=== PATIENT | male | born 1940 | race Caucasian/White ===

== ENCOUNTER 2024-10-25 11:18 | Outpatient (CLI) | payer OTHER, SELFPAY | END 2024-10-25 11:19 | disposition home or self-care (01) | LOC: AMB 10-26 14:57 | PROVIDERS: Visit Provider Family Medicine | DX: I46.9 Cardiac arrest, cause unspecified (principal) | CPT/HCPCS: A0425; A0427 ==

== ENCOUNTER 2024-10-25 11:59 | Emergency (ER) | payer OTHER, SELFPAY ==
[2024-10-25] VITALS (24 sets, daily range): BP systolic 140–177; BP diastolic 76–93; PULSE 55–65; RESP 11–28; TEMP 36.2; O2SAT 92–97; BMI 27.6
--- NOTE | 2024-10-25 12:40 | ED_ITS ---
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 Unfortunately Mr. Kelly has had 4 previous episodes of passing out. He actually had it implanted loop monitor placed 6 weeks ago. Today he was walking into the [employer] preparing to listen to his granddaughter sing in the choir. He started feeling lightheaded like he was going to pass out and was able to find a rock to sit on but then ended up laying on the ground. He was unresponsive for 2-3 minutes and EMS was actually called out for a cardiac arrest. However, when they arrived they found him to be bradycardic and waking up. He was given normal saline 500 mL and had complained of nausea when he awoke. He was given Zofran 4 mg. He ended up having a large bowel movement on the way to the hosp [facility]. In relation to previous episodes this is very similar with the exception of the bowel movement. He has had 4 previous episodes since March with no explanation. Mr Kelly has not had cough cold congestion. He denied chest pain shortness of breath visual changes numbness or tingling in the body prior to the onset of today's symptoms. He did eat breakfast but did not have a large amount of fluid. He has otherwise been healthy. His cardiologists is Dr. Stout with [facility]. He and his currently live in [place]. No history of Parkinson's disease. Note that patient did not feel ?quite right last week and had an episode of lightheadedness after walking up 8 steps. This lasted for only 2-3 minutes and he was not syncopal. He did contact [employer] and the loop monitor did not show any abnormal behavior. Related Data Home Medications ?Medication ?Instructions ?Recorded ?Confirmed aspirin 81 mg tablet,delayed 81 mg PO DAILY 10/25/24 10/25/24 release atorvastatin 40 mg tablet 40 mg PO DAILY 10/25/24 10/25/24 bupropiion 300 mg PO .am 10/25/24 10/25/24 buspirone 5 mg tablet 5 mg PO BID 10/25/24 10/25/24 carbamazepine 200 mg tablet 200 mg PO BID 10/25/24 10/25/24 finasteride 5 mg tablet 5 mg PO DAILY 10/25/24 10/25/24 losartan 100 mg tablet (Cozaar) 100 mg PO DAILY 10/25/24 10/25/24 metformin 1,000 mg tablet 1,000 mg PO DAILY 10/25/24 10/25/24 sennosides 8.6 mg tablet (senna) 8.6 mg PO DAILY 10/25/24 10/25/24 sumatriptan succinate 100 mg PO PRN 10/25/24 Review of Systems Status of ROS: Reports: 10 or more systems reviewed and unremarkable except as noted in History and below Const: Denies: fever, chills or fatigue Eyes: Denies: change in vision or blurry vision ENMT: Denies: throat pain, neck pain or nasal congestion Cardio: Denies: chest pain, palpitations, swelling of feet/ankles or shortness of breath with exertion Resp: Denies: shortness of breath or cough GI: Reports: nausea; Denies: abdominal pain or diarrhea : Denies: painful urination Musculo: Denies: back pain or neck pain Endo: Denies: fatigue PFSH PFSH Social History Smoking Status: Never smoker How often do you have a drink containing alcohol: 2-4 times a month How many standard drinks containing alcohol do you have on a typical day: 1 or 2 AUDIT-C Alcohol total score: 2 Non-prescribed substance use: denies use Exam Narrative: Exam Narrative: Alert and oriented. Very well-spoken gentleman in no acute distress. External ears eyes nose clear. Eyebrow raise smile intact. Heart with regular rate and rhythm and lungs are clear bilaterally. Abdomen soft nontender. All extremities with full sensation in motor and dexterity. Romberg is negative. Lower extremities with 1+ edema at the ankles. Const: Vital Signs, click to edit/add: Vital Signs - 24 hr 10/25/24 12:20 10/25/24 12:46 10/25/24 13:00 Temperature 97.2 F L Pulse Rate 59 L Pulse Rate [Pulse Oximeter] 58 L Pulse Rate [orthos tatic lying Pulse Oximeter] Pulse Rate [orthos tatic sitting] Pulse Rate [orthos tatic standing] Respiratory Rate 18 21 22 Blood Pressure Blood Pressure [Le ft Upper Arm] 156/83 H Blood Pressure [or thostatic lying] Blood Pressure [or thostatic sitting] Blood Pressure [or thostatic standing ] Pulse Oximetry 96 94 Oxygen Delivery [facility] Room Air 10/25/24 13:02 10/25/24 13:15 10/25/24 13:17 Temperature Pulse Rate Pulse Rate [Pulse Oximeter] Pulse Rate [orthos tatic lying Pulse Oximeter] 57 L Pulse Rate [orthos tatic sitting] 58 L Pulse Rate [orthos tatic standing] 58 L Respiratory Rate 21 14 Blood Pressure 158/85 H Blood Pressure [Le ft Upper Arm] Blood Pressure [or thostatic lying] 140/81 H Blood Pressure [or thostatic sitting] 151/77 H Blood Pressure [or thostatic standing ] 146/76 H Pulse Oximetry [facility] 10/25/24 13:19 10/25/24 13:21 10/25/24 13:22 Temperature Pulse Rate 59 L 58 L Pulse Rate [Pulse Oximeter] Pulse Rate [orthos tatic lying Pulse Oximeter] Pulse Rate [orthos tatic sitting] Pulse Rate [orthos tatic standing] Respiratory Rate 20 11 L 18 Blood Pressure 140/81 H 151/77 H 146/76 H Blood Pressure [Le ft Upper Arm] Blood Pressure [or thostatic lying] Blood Pressure [or thostatic sitting] Blood Pressure [or thostatic standing ] Pulse Oximetry 97 97 Oxygen Delivery La thod 10/25/24 13:30 10/25/24 13:32 10/25/24 13:45 Temperature Pulse Rate 58 L 59 L 57 L Pulse Rate [Pulse Oximeter] Pulse Rate [orthos tatic lying Pulse Oximeter] Pulse Rate [orthos tatic sitting] Pulse Rate [orthos tatic standing] Respiratory Rate 18 16 15 Blood Pressure 152/84 H Blood Pressure [Le ft Upper Arm] Blood Pressure [or thostatic lying] Blood Pressure [or thostatic sitting] Blood Pressure [or thostatic standing ] Pulse Oximetry 93 93 95 Oxygen Delivery La thod 10/25/24 14:00 10/25/24 14:02 10/25/24 14:15 Temperature Pulse Rate 59 L 57 L 60 Pulse Rate [Pulse Oximeter] Pulse Rate [orthos tatic lying Pulse Oximeter] Pulse Rate [orthos tatic sitting] Pulse Rate [orthos tatic standing] Respiratory Rate 14 15 19 Blood Pressure 147/78 H Blood Pressure [Le ft Upper Arm] Blood Pressure [or thostatic lying] Blood Pressure [or thostatic sitting] Blood Pressure [or thostatic standing ] Pulse Oximetry 96 95 96 Oxygen Delivery Me thod 10/25/24 14:30 10/25/24 14:32 10/25/24 14:45 Temperature Pulse Rate 62 55 L 62 Pulse Rate [Pulse Oximeter] Pulse Rate [orthos tatic lying Pulse Oximeter] Pulse Rate [orthos tatic sitting] Pulse Rate [orthos tatic standing] Respiratory Rate 16 16 20 Blood Pressure 152/78 H Blood Pressure [Le ft Upper Arm] Blood Pressure [or thostatic lying] Blood Pressure [or thostatic sitting] Blood Pressure [or thostatic standing ] Pulse Oximetry 92 94 94 Oxygen Delivery Me thod 10/25/24 14:59 10/25/24 15:00 10/25/24 15:02 Temperature Pulse Rate 62 Pulse Rate [Pulse Oximeter] Pulse Rate [orthos tatic lying Pulse Oximeter] Pulse Rate [orthos tatic sitting] Pulse Rate [orthos tatic standing] Respiratory Rate 18 19 15 Blood Pressure 172/93 H 177/84 H Blood Pressure [Le ft Upper Arm] Blood Pressure [or thostatic lying] Blood Pressure [or thostatic sitting] Blood Pressure [or thostatic standing ] Pulse Oximetry 94 Oxygen Delivery Me thod Room Air 10/25/24 15:15 10/25/24 15:30 10/25/24 15:32 Temperature Pulse Rate 63 64 65 Pulse Rate [Pulse Oximeter] Pulse Rate [orthos tatic lying Pulse Oximeter] Pulse Rate [orthos tatic sitting] Pulse Rate [orthos tatic standing] Respiratory Rate 28 H 22 22 Blood Pressure 164/91 H Blood Pressure [Le ft Upper Arm] Blood Pressure [or thostatic lying] Blood Pressure [or thostatic sitting] Blood Pressure [or thostatic standing ] Pulse Oximetry 96 97 95 Oxygen Delivery Me thod Documenting provider has reviewed patient's vital signs: yes Course Course ED Course: Differential diagnosis includes sick sinus syndrome, vasovagal syncope, acute coronary event, arrhythmia, autonomic dysfunction. At this time patient will remain on the surveillance system monitor, be checked with a CBC, comprehensive panel, troponin. [facility] Patient will try to contact [employer] to see if there was anything picked up on his device. Reevaluation(s) Reevaluation #1: Unfortunately we are unable to interrogate this device in this area. I did have the pleasure of speaking to Cardiology from the [facility] who does suggest contacting the physician line with [employer] to have a product support representative come and interrogate this. Unfortunately there is no such help available today. I spoke to the granulating machine operator once again. Feels that if patient is agreeable we could let him go home and follow up tomorrow morning since this is the 5th time something like this has happened. Vital Signs Vital signs: Initial Vital Signs Temperature 97.2 F L 10/25/24 12:20 Temperature Source Temporal Artery Scan 10/25/24 12:20 Pulse Rate 58 L 10/25/24 12:20 Respiratory Rate 18 10/25/24 12:20 Blood Pressure 156/83 H 10/25/24 12:20 Blood Pressure Mean 107 H 10/25/24 12:20 Blood Pressure Position Sitting 10/25/24 12:20 Pulse Oximetry 96 10/25/24 12:20 Oxygen Delivery Method Room Air 10/25/24 12:20 Vital Signs Temperature 97.2 F L 10/25/24 12:20 Pulse Rate 58 L 10/25/24 12:20 Respiratory Rate 18 10/25/24 12:20 Blood Pressure 156/83 H 10/25/24 12:20 Pulse Oximetry 96 10/25/24 12:20 Oxygen Delivery Method Room Air 10/25/24 12:20 Temperature 97.2 F L 10/25/24 12:20 Pulse Rate 65 10/25/24 15:32 Respiratory Rate 22 10/25/24 15:32 Blood Pressure 164/91 H 10/25/24 15:32 Pulse Oximetry 95 10/25/24 15:32 Oxygen Delivery Method Room Air 10/25/24 14:59 Medical Decision Making MDM Narrative Medical decision making narrative: 1. Syncopal episode--EKG unchanged from previous in discussion with granulating machine operator. Troponin is negative. Patient has being quite anxious to go home but has been very gracious as he awaits my discussion with Cardiology. He has had no chest pain shortness of breath either prior to during or after this event. At this time with shared decision making he does wish to go home. Alternatively the plan would be to transfer him to tertiary care where they could interrogate his device. He states that he is feeling totally normal. They note four previous similar occurrences. At this time I do note that I do not have an explanation for what he he experience today but if you would like to go home we will allow that to happen. He states that if any of his symptoms returned they will go immediately to hospital. If tonight is without incident he is to contact his granulating machine operator tomorrow morning for interrogation of the [employer] device. His is in agreement with this plan. 2. Disposition-home at this time. Return for worsening symptoms. Suggested increasing hydration. Lab Data Lab results reviewed: Yes I reviewed the patient's lab results Labs: Lab Results 10/25/24 10/25/24 Range/Units 13:03 13:12 WBC 7.32 (4.50-11.00) K/uL RBC 4.01 L (4.30-5.90) m/uL Hgb 12.1 L (13.5-17.5) gm/dL Hct 38.2 (37.0-53.0) % MCV 95 (80-100) fL MCH 30 (26-34) pg MCHC 32 (32-36) gm/dL RDW Coeff of Jacy 14.5 (11.5-15.5) % Plt Count 199 (140-440) K/uL Neut % (Auto) 75.4 H (42.0-72.0) % Lymph % (Auto) 13.9 L (20-44) % [place] % (Auto) 7.4 (0.0-11.0) % Eos % (Auto) 2.5 (0.0-7.0) % Baso % (Auto) 0.5 (0.0-3.0) % Neut # (Auto) 5.50 (1.7-7.0) K/uL Lymph # (Auto) 1.00 (0.90-2.90) K/uL [place] # (Auto) 0.50 (0.00-0.90) K/UL Eos # (Auto) 0.18 (0.00-0.50) K/uL Baso # (Auto) 0.04 (0.00-0.30) K/uL Abs Immat Gran (auto) 0.02 (0.00-0.30) K/uL Imm/Tot Granulo (auto) 0.3 % Sodium 137 (135-149) mmol/L Potassium 4.6 (3.6-5.1) mmol/L Chloride 104 (96-114) mmol/L Carbon Dioxide 26 (20-32) mmol/L Anion Gap 7 (7-15) mEq/L BUN 20 (7-30) mg/dL Creatinine 0.8 (0.5-1.5) mg/dL Estimated Creat Clear 60.66 Estimated GFR 88 ml/min Glucose 116 H (60-115) mg/dL Calcium 9.0 (8.4-10.6) mg/dL Total Bilirubin 0.5 (0.1-1.5) mg/dL AST 40 H (12-35) U/L ALT 23 (4-50) U/L Alkaline Phosphatase 61 (40-150) U/L Total Protein 6.7 (6.0-8.3) g/dL Albumin 3.9 (3.3-5.0) g/dL POC Troponin I 0.00 L (0.01-0.04) ng/ml ECG Data Attestation: I personally reviewed and interpreted this ECG as follows: Interpretation: EKG by my read shows sinus bradycardia at a rate of 59. Prolonged [place] interval at 0246 milliseconds. Poor R-wave progression. QT within normal limits. Questionable previous septal infarct. No previous EKGs for comparison. Discharge Plan Discharge Clinical Impression: Syncope Patient Disposition: Home, Self-Care Condition: Improved Additional Instructions: You were supposed to call the granulating machine operator's office tomorrow to have your device checked. If you are feeling worse after departure please proceed to nearest hospital. Prescriptions: No Action finasteride 5 mg tablet 5 mg PO DAILY losartan [Cozaar] 100 mg tablet 100 mg PO DAILY metformin 1,000 mg tablet 1,000 mg PO DAILY sennosides [senna] 8.6 mg tablet 8.6 mg PO DAILY sumatriptan succinate 100 mg PO PRN aspirin 81 mg tablet,delayed release (DR/EC) 81 mg PO DAILY atorvastatin 40 mg tablet 40 mg PO DAILY bupropiion 300 mg PO .am buspirone 5 mg tablet 5 mg PO BID carbamazepine 200 mg tablet 200 mg PO BID Follow Up/Referrals: Provider,Not a Local [Primary Care Provider] - Stand Alone Forms: [employer] Info Instructions
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
--- OUTSIDE RECORDS SUMMARY | 2024-10-25 12:50 | XMS_ITS | Encounter Summary ---
Author Organization [facility] Address [address] [place] [address] Care Team Providers Care Human Services Case Manager Name Role Phone Jeison Stout MD Unavailable [phone] Morning, Gaye Varela NP Primary Care Provider [phone] Tayla Collado PA-C Unavailable [phone] Morning, Gaye Varela NP Unavailable [phone] Encounter Details Date Type Department Care Team (Latest Contact Info) Description 09/21/2024 Travel Social History Tobacco Use Types Packs/Day Years [...] re latives? Once a week 07/28/2024 Attends Sikhism Services Not on file 07/28 Active Member of Clubs or Organizations Not on f ile 07/28/2024 Attends Club or Organization Meetings Not on wilman e 07/28/2024 Marital Status Not on file 07/28/2024 PHQ-2 Answer Date Recorded PHQ-2 Score 2 07/29/2024 [facility] [place] [facility] - Occupational Stress Questionnaire Answer Date Recorded [...] Date Recorded Do you have housing? 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 Gender Identity Not on file Sexual Orientation Not on file documented as of this encounter Plan of Treatment Upcoming Encounters Date Type Department Care Team (Late st Contact Info) Description 10/30/2024 1:00 PM CDT Appointment [facility] Diagnostic Imaging [address] [place] [phone] Macarena Hudson PA-C [address] [place], [place] [phone] 10/30/2024 1:30 PM CDT Office Visit [facility] Spine and Neurosurgery [address] [facility] [address] [place] [phone] Macarena Hudson PA-C [address] [place], [place] [phone] Kassie Berkowitz PA-C [facility] [address] [id number] 11/25/2024 9:10 AM CDT Office Visit [facility] [address] [facility] [address] [place] [phone] Katt Gaytan PA-C [address] [facility] [address] [place] [address] 01/20/2025 1:00 PM CDT Office Visit [facility] [place] [id number] [place] [phone] Morning, Gaye Varela, PROCESS IMPROVEMENT SPECIALIST [address] [facility] [address] [place] [phone] Kassie Rondon PA-C [address] [facility] [address] [address] 01/22/2025 Ancillary Procedure [facility] [address] [facility] [address] [place] [phone] Julio Wright MD [address] [facility] [address] [place] [address] documented as of this encounter Visit Diagnoses Not on filedocumented in this encounter Care Teams Human Services Case Manager Relationship Specialty Start Date End Date Morning, Gaye Varela NP [address] [address] PCP - General Internal Medicine 07/29/24 Jeison Stout MD [address] [facility] [address] [place] [address] Assigned Heart and Vascular Provider 07/09/24 Tayla Collado PA-C [address] [place] [address] Assigned Neuroscience Provider 08/09/24 10/06/24 Morning, Gaye Varela NP [address] [address] Assigned PCP 08/09/24 documented as of this encounter
--- OUTSIDE RECORDS SUMMARY | 2024-10-25 12:50 | XMS_ITS | Encounter Summary ---
Author Organization [place] Address [address] [place] [address] Care Team Providers Care Business Intelligence Engineer Name Role Phone Jeison Stout MD Unavailable [phone] Morning, Gaye Varela NP Primary Care Provider [phone] Tayla Collado PA-C Unavailable [phone] Morning, Gaye Varela NP Unavailable [phone] Reason for Referral * Diagnostic Imaging XR (Routine) - Pending Review Specialty Diagnoses / Procedures Referred By Contac t Referred To Contact Radiology. Diagnoses Compression fracture of T11 vertebra with routine healing, 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 Procedures XR Thoracic Lumbar Standing 2 Views Tayla Collado PA-C [address] [place] [address] Phone: tel: fax: Referral ID Status Reason Start Date Expiration Date V isits Requested Visits Authorized [id number] Pending Review 08/13/2024 08/13/2025 1 1 Reason for Visit * Diagnostic Imaging XR (Routine) - Pending Review Specialty Diagnoses / Procedures Referred By Contac t Referred To Contact Radiology. Diagnoses Compression fracture of T11 vertebra with routine healing, 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 Procedures XR Thoracic Lumbar Standing 2 Views Tayla Collado PA-C [address] [place] [address] Phone: tel: fax: Referral ID Status Reason Start Date Expiration Date V isits Requested Visits Authorized [id number] Pending Review 08/13/2024 08/13/2025 1 1 Encounter Details Date Type Department Care Team (Latest Contact Info) Description 09/22/2024 1:24 PM CDT - 09/22/2024 11:59 PM CDT Hospital Encounter [address] [phone] Tayla Collado PA-C [address] [place], [place] [phone] Compression fracture of T11 vertebra with routine healing, 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 Discharge Disposition: Home or Self Care Social History Tobacco Use Types Packs/Day Years [...] re latives? 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 atorvastatin (LIPITOR) 40 MG tablet Take 1 tablet by mouth daily at 2 pm. 09/18/2024 buPROPion (WELLBUTRIN XL) 300 MG 24 hr tablet Take 300 mg by mouth every morning. 06/22/2024 busPIRone (BUSPAR) 5 MG tablet Take 5 mg by mouth 2 times daily. 06/22/2024 06/27/2025 carBAMazepine (TEGRETOL) 200 MG tablet Take 200 mg by mouth 2 times daily. 06/28/2023 losartan (COZAAR) 100 MG tablet Take 1 tablet by mouth daily. 02/16/2024 metFORMIN (GLUCOPHAGE XR) 500 MG 24 hr tablet Take 2 tablets by mouth daily. 02/16/2024 senna-docusate (SENOKOT-S/PERIC OLACE) 8.6-50 MG tablet Take 1 tablet by mouth daily. SUMAtriptan (IMITREX) 100 MG tablet Take 100 mg by mouth at onset of headache for migraine. 01/29/2024 cyclobenzaprine (FLEXERIL) 5 MG tablet Take 5 mg by mouth as needed. 09/14/2024 10/14/2024 gabapentin (NEURONTIN) 100 MG capsule Take 100 mg by mouth daily. 09/14/2024 10/14/2024 atorvastatin (LIPITOR) 20 MG tablet Take 20 mg by mouth daily. 09/25/2024 Lidocaine (LIDOCARE) 4 % Patch Apply 2 patches topically. 09/14/2024 09/25/2024 tamsulosin (FLOMAX) 0.4 MG capsuleIndicatio ns:Weak urinary stream Take 1 capsule (0.4 mg) by mouth daily. 30 capsule 09/07/2024 10/06/2024 documented as of this encounter Plan of Treatment Upcoming Encounters Date Type Department Care Team (Late st Contact Info) Description 10/30/2024 1:00 PM CDT Appointment [facility] Diagnostic Imaging [address] [place] [phone] Macarena Hudson PA-C [address] [place] [address] 10/30/2024 1:30 PM CDT Office Visit [facility] Spine and Neurosurgery [address] [facility] [address] [place] [phone] Macarena Hudson PA-C [address] [place] [address] Kassie Berkowitz PA-C [facility] [address] [place] [address] 11/25/2024 9:10 AM CDT Office Visit [facility] [address] [facility] [address] [place] [phone] Katt Gaytan PA-C [address] [facility] [address] [place], [place] [phone] 01/20/2025 1:00 PM CDT Office Visit [facility] [address] [place] [phone] Morning, Gaye Varela, PRODUCT MANAGENT INTERN [address] [facility] [address] [place] [phone] aKssie Rondon PA-C [address] [facility] [address] [place] [address] 01/22/2025 Ancillary Procedure [facility] [address] [facility] [address] [place] [phone] Julio Wright MD [address] [facility] [address] [place], [place] [phone] documented as of this encounter Procedures Procedure Name Priority Date/Time Associated Diagnosis Comments XR THORACIC LUMBAR STANDING 2 VIEWS Routine 09/22/2024 1:56 PM CDT Compression fracture of T11 vertebra with routine healing, 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 documented in this encounter Results * XR Thoracic Lumbar Standing 2 Views (09/22/2024 1:56 PM CDT) Anatomical Region Laterality Modality C-spine, T-spine, L-spine Digita l Radiography 09/22/2024 1:56 PM CDT Impressions 09/22/2024 11:58 PM CDT IMPRESSION: 1. No significant progressive height loss associated with known T11 superior endplate fracture or T12 inferior endplate fracture since radiographs performed on 07/22/2024. No new areas of vertebral body height loss. 2. Similar alignment with thoracolumbar levocurvature and retrolisthesis of L1 on L2 and L2 on L3. 3. Multilevel degenerative disc and facet disease. 4. Loop recorder device overlying the left hemithorax. Narrative 09/22/2024 11:58 PM CDT EXAM: XR THORACIC LUMBAR STANDING 2 VIEWS LOCATION: [facility] DATE: 09/22/2024 INDICATION: subacute T11 compression fracture COMPARISON: Thoracic spine MRI: 08/07/2024. Thoracic spine radiographs: 07/22/2024. Procedure Note Venancio Rouse MD - 09/23/2024 EXAM: XR THORACIC LUMBAR STANDING 2 VIEWS LOCATION: [facility] DATE: 09/22/2024 INDICATION: subacute T11 compression fracture COMPARISON: Thoracic spine MRI: 08/07/2024. Thoracic spine radiographs:07/22/2024. IMPRESSION: 1. No significant progressive height loss associated with known [id number] endplate fracture or T12 inferior endplate fracture sinceradiographs performed on 07/22/2024. No new areas of vertebral body heightloss. 2. Similar alignment with thoracolumbar levocurvature and retrolisthesisof L1 on L2 and L2 on L3. 3. Multilevel degenerative disc and facet disease. 4. Loop recorder device overlying the left hemithorax. us Tayla Collado PA-C IMG DIAGNOSTIC IMAGING O RDERABLES Final Result documented in this encounter Visit Diagnoses Diagnosis Compression fracture of T11 vertebra with routine healing, 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 documented in this encounter Care Teams Business Intelligence Engineer Relationship Specialty Start Date End Date Morning, Gaye Varela NP [address] [facility] [place] [address] PCP - General Internal Medicine 07/29/24 Jeison Stout MD [address] [place] [address] [address] [place] [address] Assigned Heart and Vascular Provider 07/09/24 Tayla Collado PA-C [address] [place] [address] Assigned Neuroscience Provider 08/09/24 10/06/24 Morning, Gaye Varela NP [facility] [facility] [place] [address] Assigned PCP 08/09/24 documented as of this encounter
--- OUTSIDE RECORDS SUMMARY | 2024-10-25 12:50 | XMS_ITS | Encounter Summary ---
Author Organization [place] Address [address] [place] [address] Care Team Providers Care Hoist Mechanic Name Role Phone Jeison Stout MD Unavailable [phone] Morning, Gaye Varela NP Primary Care Provider [phone] Tayla Collado PA-C Unavailable [phone] Morning, Gaye Varela NP Unavailable [phone] Reason for Visit * Diagnostic Imaging XR (Routine) - Pending Review Specialty Diagnoses / Procedures Referred By Saba guzman Referred To Contact Radiology. Diagnoses Multiple closed fractures of ribs of both sides with routine healing, 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 Procedures XR Chest 2 Views Morning, Gaye Varela NP [address] [address] Phone: tel: fax: Referral ID Status Reason Start Date Expiration Date V isits Requested Visits Authorized [id number] Pending Review 09/21/2024 09/21/2025 1 1 Encounter Details Date Type Department Care Team (Late st Contact Info) Description 09/21/2024 2:15 PM CDT Ancillary Procedure [facility] [address] [place] [phone] Morning, Gaye Varela NP [address] [facility] [place] [address] Multiple closed fractures of ribs of both sides with routine healing, 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 Social History Tobacco Use Types [...] re latives? Once a week 07/28/2024 Attends [employer] Services Not on file 07/28 Active Member of Clubs or Organizations Not on f ile 07/28/2024 Attends Club or Organization Meetings Not on wilman e 07/28/2024 Marital Status Not on file 07/28/2024 PHQ-2 Answer Date Recorded PHQ-2 Score 2 07/29/2024 [facility] [place] of Occupat ional Health - Occupational Stress [...] Answer Date Recorded Do you have housing? 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 Gender Identity Not on file Sexual Orientation Not on file documented as of this encounter Plan of Treatment Upcoming Encounters Date Type Department Care Team (Late st Contact Info) Description 10/30/2024 1:00 PM CDT Appointment [facility] Diagnostic Imaging [address] [place] [phone] Macarena Hudson PA-C [address] [place] [address] 10/30/2024 1:30 PM CDT Office Visit [facility] Spine and Neurosurgery [address] [facility] [address] [place] [phone] Macarena Hudson PA-C [address] [place] [address] Kassie Berkowitz PA-C [facility] [address] [facility] [place] [address] 11/25/2024 9:10 AM CDT Office Visit [facility] Heart [facility] [address] [facility] [address] [place] [phone] Katt Gaytan PA-C [address] [facility] [address] [place] [address] 01/20/2025 1:00 PM CDT Office Visit [facility] [address] [place] [phone] Morning, Gaye Varela, HEADLINER INSTALLER [address] [facility] [address] [address] [place], [place] [phone] Kassie Rondon PA-C [address] [facility] [address] [place], [place] [address] 01/22/2025 Ancillary Procedure [facility] [address] [facility] [address] [place] [phone] Julio Wright MD [address] [facility] [address] [place] [address] documented as of this encounter Procedures Procedure Name Priority Date/Time Associated Diagnosis Comments XR CHEST 2 VIEWS Routine 09/21/2024 2:18 PM CDT Multiple closed fractures of ribs of both sides with routine healing, 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 documented in this encounter Results * XR Chest 2 [...] CDT EXAM: XR CHEST 2 VIEWS LOCATION: [facility] DATE: 09/21/2024 INDICATION: Multiple closed fractures of ribs of both sides with routine healing, 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 COMPARISON: CT 06/15/2024 Procedure Note Aston Harman MD - 09/22/2024 EXAM: XR CHEST 2 VIEWS LOCATION: [facility] DATE: 09/21/2024 INDICATION: Multiple closed fractures of ribs of both sides with routinehealing, 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 COMPARISON: CT 06/15/2024 IMPRESSION: Chronically elevated right hemidiaphragm with some associatedatelectasis right lung base unchanged since prior CT. Monitoring deviceover the chest. No acute new findings. No pneumothorax. Nothing concerningfor rib fractures on chest x- ray. Gaye Varela Morning HEADLINER INSTALLER IMG DIAGNOSTIC IMAGING [place] Final Result documented in this encounter Visit Diagnoses Diagnosis Multiple closed fractures of ribs of both sides with routine healing, 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 documented in this encounter Care Teams Hoist Mechanic Relationship Specialty Start Date End Date Catherine, Gaye Varela NP [address] [address] PCP - General Internal Medicine 07/29/24 Jeison Stout MD [address] [address] Assigned Heart and Vascular Provider 07/09/24 Tayla Collado, ULISES [address] [place] [address] Assigned Neuroscience Provider 08/09/24 10/06/24 Catherine, Gaye Varela NP [address] [address] Assigned PCP 08/09/24 documented as of this encounter
--- OUTSIDE RECORDS SUMMARY | 2024-10-25 12:50 | XMS_ITS | Encounter Summary ---
Author Organization [place] Address [address] [place] [address] Care Team Providers Care Director Process Improvement Name Role Phone Jeison Stout MD Unavailable [phone] Morning, Gaye Varela NP Primary Care Provider [phone] Tayla Collado-Alyson Unavailable [phone] Morning, Gyae Varela NP Unavailable [phone] Reason for Referral * CV Testing (Routine) - Pending Review Specialty Diagnoses / Procedures Referred By Saba guzman Referred To Contact Diagnoses History of loop recorder Syncope, unspecified syncope type Procedures Cardiac Device Check - Remote Julio Wright MD [address] [facility] 200 [place] [address] Phone: tel: fax: Referral ID Status Reason Start Date Expiration Date V isits Requested Visits Authorized [id number] Pending Review 09/25/2024 09/25/2025 100 100 Reason for Visit * CV Testing (Routine) - Pending Review Specialty Diagnoses / Procedures Referred By Saba guzman Referred To Contact Diagnoses History of loop recorder Procedures Cardiac Device Check - In Clinic Julio Wright MD [address] [facility] 200 [place] [address] Phone: tel: fax: Referral ID Status Reason Start Date Expiration Date V isits Requested Visits Authorized [id number] Pending Review 09/24/2024 09/24/2025 1 1 Encounter Details Date Type Department Care Team (Latest Contact Info) Description 09/25/2024 3:00 PM CDT Ancillary Procedure [facility] Heart [facility] [address] [facility] [address] [place] [address] Julio Wright MD 1600 [facility] 200 [place], [place] [phone] Syncope, unspecified syncope type (Primary Dx); History of loop recorder Social History Tobacco Use Types Packs/Day Years [...] re latives? 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 Gender Identity Not on file Sexual Orientation Not on file documented as of this encounter Plan of Treatment Upcoming Encounters Date Type Department Care Team (Late st Contact Info) Description 10/30/2024 1:00 PM CDT Appointment [facility] Diagnostic Imaging [address] [place] [phone] Macarena Hudson PA-C [address] [place] [address] 10/30/2024 1:30 PM CDT Office Visit [facility] Spine and Neurosurgery [address] [facility] [address] [place] [phone] Macarena Hudson PA-C [address] [facility] [place] [place] [phone] Kassie Berkowitz PA-C [facility] [address] [facility] [place] [place], [place] [address] 11/25/2024 9:10 AM CDT Office Visit [facility] [address] [facility] [place] [phone] Katt Gaytan PA-C 1600 [facility] 200 [place], [place] [phone] 01/20/2025 1:00 PM CDT Office Visit [facility] [address] [place] [phone] Morning, Gaye Varela, ACTUARIAL TECHNICIAN [address] [facility] [place], [place] [phone] Kassie Rondon PA-C [address] [facility] 103 [place], [place] [address] 01/22/2025 Ancillary Procedure [facility] [address] [place] [phone] Julio Wright MD 1600 [facility] 200 [place], [place] [phone] Scheduled Orders Name Type Priority Associated Diagnoses Orde r Schedule Cardiac Device Check - Remote Implantable Cardiac Device Routine History of loop recorder Syncope, unspecified syncope type 100 Occurrences starting 09/25/2024 until 09/25/2025, 1 completed documented as of this encounter Procedures Procedure Name Priority Date/Time Associated Diagnosis Comments INTERR DEVICE EVAL IN PERSON, LOOP RECORDER Routine 09/25/2024 2:54 PM CDT History of loop recorder documented in this encounter Results * REMOTE IMPLANTABLE LOOP RECORDER INTERROGATION 30 DAY (10/23/2024 10:30 AM CDT) Date Time Interrogation Session [id number] [employer] Implantable Pulse Generator Endocrinology Nurse Medtronic [employer] Implantable Pulse Generator Model LNQ22 LINQ II [employer] Implantable Pulse Generator Serial Number [id number] [employer] Type Interrogation Session Remote [facility] [employer] Implantable Pulse Generator Type Implantable Diagnostic Monitor [employer] Implantable Pulse Generator Implant Date 20240914 [employer] Anatomical Region Laterality Modality Other 10/23/2024 9:18 AM CDT Narrative 10/23/2024 10:43 AM CDT Type: routine remote loop recorder transmission. Device: Medtronic LINQ II. Presenting rhythm: Sinus 60 bpm. Battery status: Good. Arrhythmias: since 09/25/24; None detected. Plan: Next remote check scheduled for 01/22/25. E. Pivec, Device Specialist Device follow up for the entirety of having the Device, based on best practices determined by Heart R[employer] Society and in compliance with Medicare guidelines. Continue remote device monitoring per patient plan. I have reviewed and interpreted the device interrogation, settings, programming, and encounter summary. The device is functioning within normal device parameters. I agree with the current findings, assessment and plan. us Julio Wright MD CV CARDIAC SERVICES ORD ERABLES Final Result * INTERR DEVICE EVAL IN PERSON, LOOP RECORDER (09/25/2024 2:54 PM CDT) Implantable Pulse Generator Endocrinology Nurse Medtronic [employer] Implantable Pulse Generator Model LNQ22 LINQ II [employer] Implantable Pulse Generator Serial Number [id number] [employer] Type Interrogation Session [facility] [employer] Implantable Pulse Generator Type Implantable Diagnostic Monitor [employer] Implantable Pulse Generator Implant Date 20240914 [employer] Date Time Interrogation Session [id number] [employer] Anatomical Region Laterality Modality Other 09/25/2024 3:45 PM CDT Narrative 09/25/2024 4:20 PM CDT Encounter type: In clinic ILR check (7-10 day post op) & wound assessment. Accompanied by his , Jocelyne. Device: Medtronic LINQ II loop recorder Implanted on: September 14, 2024 For Dx: Syncope Presenting Rhythm: Ventricular sensing at 55 bpm (normal SR/SB) Battery: Good Symptom: None Tachy: None Pause: 3 pause episodes logged on 09/14/2024 (date & time of ILR implant) Manav: None Time in AT/AF: None, 0% Heart rate: 30-180 bpm but primarily 40-80 bpm per histograms with excellent variability (PVC's <1%) Device site: Clean, dry, & intact with edges well approximated. No redness, drainage, or gross swelling noted. Teaching/education: Reviewed incisional care, signs/symptoms of infection, remote monitoring (relay monitor), when to call the clinic, and Partnership for device patients agreement form with patient. Comments: Normal device function. Plan: Next scheduled remote transmission on January 04, 2025- patient is aware & reminder letter was given to him. Gabby Bro RN Remote monitoring for arrhythmic events for the entirety of having the ILR, based on best practices determined by [facility] and in compliance with Medicare Guidelines. I have reviewed and interpreted the device interrogation, settings, programming and nurse's summary. The device is functioning within normal device parameters. I agree with the current findings, assessment and plan. us Julio Wright MD CV CARDIAC SERVICES ORD ERABLES Final Result documented in this encounter Visit Diagnoses Diagnosis Syncope, unspecified syncope type- Primary History of loop recorder documented in this encounter Care Teams Director Process Improvement Relationship Specialty Start Date End Date Morning, Gaye Varela NP [address] [facility] [place] [address] PCP - General Internal Medicine 07/29/24 Jeison Stout MD 1600 [facility] 200 [place] [address] Assigned Heart and Vascular Provider 07/09/24 Tayla Collado PA-C [address] [facility] [place] [address] Assigned Neuroscience Provider 08/09/24 10/06/24 Morning, Gaye Varela NP [address] [facility] [place] [address] Assigned PCP 08/09/24 documented as of this encounter
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
--- OUTSIDE RECORDS SUMMARY | 2024-10-25 12:51 | XMS_ITS | Encounter Summary ---
Author Organization [facility] Address [address] [place] [address]. [place] [address] Care Team Providers Care Housekeeping Aide Name Role Phone Jeison Stout MD Unavailable [phone] Morning, Gaye Varela NP Primary Care Provider [phone] Tayla Collado PA-C Unavailable [phone] Morning, Gaye Varela NP Unavailable Reason for Visit * Reason Onset Date Comments Orders 09/16/2024 Encounter Details Date Type Department Care Team (Late st Contact Info) Description 09/16/2024 Telephone [facility] [address] [place] [address] Morning, Gaye Varela NP [address] [facility] [place] [phone] Orders Social History Tobacco Use Types Packs/Day Years [...] re latives? 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 * Telephone Encounter - Gaye Alexander NP - 09/16/2024 12:57 PM CDT Please let patient know that I did place an order for BMP. He should schedule a lab appointment to have this completed. Depending on when this is completed I may have results before I leave by the end of the day today however results may come back tomorrow. I am not in office tomorrow but they willhave another provider covering my in basket to follow-up on those results. * Telephone Encounter - Gabby Juares - 09/16/2024 9:40 AM CDT Order/Referral Request Who is requesting: patient Orders being requested: labs for sodium Reason service is needed/diagnosis: low sodium levels - ER provider told pt to get in today for labs and and to see PCP but there isn't an order for labs and PCP is booked completely When are orders needed by: 09/16 Has this been discussed with Provider: N/A Does patient have a preference on a Group/Provider/Facility? Does patient have an appointment scheduled?: No Where to send orders: Place orders within [facility] Could we send this information to you in [facility] or would you prefer to receive a phone call?: Patient would prefer a phone call Okay to leave a detailed message?: N/A at Home number on file [phone] (home) documented in this encounter Plan of Treatment Upcoming Encounters Date Type Department Care Team (Late st Contact Info) Description 10/30/2024 1:00 PM CDT Appointment [facility] Diagnostic Imaging [address] [place] [phone] Macarena Hudson PA-C [address] [place] [address] 10/30/2024 1:30 PM CDT Office Visit [facility] Spine [facility] Neurosurgery [address] [facility] [address] [place] [phone] Macarena Hudson PA-C [address] [place] [address] Kassie Berkowitz PA-C [facility] [address] [address] 11/25/2024 9:10 AM CDT Office Visit [facility] [address] [facility] [address] [place] [phone] Katt Gaytan PA-C [address] [facility] [address] [place] [address] 01/20/2025 1:00 PM CDT Office Visit [facility] [place] [address] [place] [phone] Morning, Gaye Varela, COIL MAKER [address] [facility] [address] [place] [phone] Kassie Rondon PA-C [address] [facility] [address] [id number] 01/22/2025 Ancillary Procedure [facility] [address] [place] [place] [phone] Julio Wright MD [address] [facility] [address] [place], [place] [phone] documented as of this encounter Results * (ABNORMAL) Basic metabolic panel (09/16/2024 1:42 PM CDT) Sodium 125(L) 135 - 145 mmol/L 09/16/2024 7:06 PM CDT [facility] Potassium 5.4(H) 3.4 - 5.3 mmol/L 09/16/2024 7:06 PM CDT [facility] Chloride 91(L) 98 - 107 mmol/L 09/16/2024 7:06 PM CDT [facility] Carbon Dioxide (CO2) 25 22 - 29 mmol/L 09/16/2024 7:06 PM CDT [facility] Anion Gap 9 7 - 15 mmol/L 09/16/2024 7:06 PM CDT [facility] Urea Nitrogen 21.2 8.0 - 23.0 mg/dL 09/16/2024 7:06 PM CDT [facility] Creatinine 0.82 0.67 - 1.17 mg/dL 09/16/2024 7:06 PM CDT [facility] GFR Estimate 88 >60 mL/min/1.7 3m2 09/16/2024 7:06 PM CDT [facility] Comment:eGFR calculated usin g 2020 CKD-EPI equation. Calcium 9.5 8.8 - 10.4 mg/dL 09/16/2024 7:06 PM CDT [facility] Glucose 127(H) 70 - 99 mg/dL 09/16/2024 7:06 PM CDT [facility] Blood BLOOD SPECIMEN / Unknown Venipuncture / Unknown 09/16/2024 1:42 PM CDT 09/16/2024 1:42 PM CDT us Gaye Alexander COIL MAKER LAB - BLOOD ORDERABLES Nisha kamara Result [facility] [address] [facility], [address] [place] [address], [facility] documented in this encounter Visit Diagnoses Diagnosis Hyponatremia- Primary Hyposmolality and/or hyponatremia documented in this encounter Care Teams Housekeeping Aide Relationship Specialty Start Date End Date Morning, Gaye Varela NP [address] [address] PCP - General Internal Medicine 07/29/24 Jeison Stout MD [address] [facility] [address] [place] [address] Assigned Heart and Vascular Provider 07/09/24 Tayla Collado, PAGabriellaC [address] [place] [address] Assigned Neuroscience Provider 08/09/24 10/06/24 Morning, Gaye Varela NP [address] [address] Assigned PCP 08/09/24 documented as of this encounter
--- OUTSIDE RECORDS SUMMARY | 2024-10-25 12:51 | XMS_ITS | Encounter Summary ---
Author Organization [facility] Address [address] [place] [address] Care Team Providers Care Cadmium Burner Name Role Phone Jeison Stout MD Unavailable [phone] Morning, Gaye Varela NP Primary Care Provider [phone] Tayla Collado PA-C Unavailable [phone] Morning, Gaye Varela NP Unavailable [phone] Encounter Details Date Type Department Care Team (Latest Contact Info) Description 09/17/2024 Travel Social History Tobacco Use Types Packs/Day [...] re latives? 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 Gender Identity Not on file Sexual Orientation Not on file documented as of this encounter Plan of Treatment Upcoming Encounters Date Type Department Care Team (Late st Contact Info) Description 10/30/2024 1:00 PM CDT Appointment [facility] Diagnostic Imaging [address] [place] [phone] Macarena Hudson PA-C [address] [place], [place] [phone] 10/30/2024 1:30 PM CDT Office Visit [facility] Spine and Neurosurgery [address] [facility] [address] [place] [phone] Macarena Hudson PA-C [address] [place], [place] [phone] Kassie Berkowitz PA-C [facility] [address] [address] 11/25/2024 9:10 AM CDT Office Visit [facility] [address] [facility] [address] [place] [phone] Katt Gaytan PA-C [address] [facility] 200 [place] [address] 01/20/2025 1:00 PM CDT Office Visit [facility] [place] [address] [place] [phone] Morning, Gaye Varela, MULTICULTURAL MANAGER [address] [place] [phone] Kassie Rondon PA-C [address] [facility] [address] [id number] 01/22/2025 Ancillary Procedure [facility] [address] [facility] [address] [place] [phone] Julio Wright MD [address] [facility] [address] [place] [address] documented as of this encounter Visit Diagnoses Not on filedocumented in this encounter Additional Health Concerns Infection Onset Date Last Indicated Resolved Time Rule Out COVID-19 09/17/2024 09/17/2024 09/17/2024 11:52 AM CDT documented as of this encounter Care Teams Cadmium Burner Relationship Specialty Start Date End Date Morning, Gaye Varela NP [address] [address] PCP - General Internal Medicine 07/29/24 Jeison Stout MD [address] [facility] [address] [place] [address] Assigned Heart and Vascular Provider 07/09/24 Tayla Collado, PAGabriellaC [address] [place] [address] Assigned Neuroscience Provider 08/09/24 10/06/24 Morning, Gaye Varela NP [address] [address] Assigned PCP 08/09/24 documented as of this encounter
--- OUTSIDE RECORDS SUMMARY | 2024-10-25 12:51 | XMS_ITS | Encounter Summary ---
Author Organization [facility] Address [address] [place] [address]. [place] [address] Care Team Providers Care Plaster Mold Maker Name Role Phone Jeison Stout MD Unavailable [phone] Morning, Gaye Varela AVIATION PROGRAM MANAGER Primary Care Provider Tayla Collado-C Unavailable [phone] Morning, Gaye Varela NP Unavailable [phone] Macarena HudsonC Unavailable [phone] Reason for Visit * Reason Onset Date Comments Call Back 09/15/2024 Encounter Details Date Type Department Care Team (Late st Contact Info) Description 09/15/2024 Telephone [facility] [address] [place] [address] Jeison Stout MD [address] 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 Gender Identity Not on file Sexual Orientation Not on file documented as of this encounter Miscellaneous Notes * Telephone Encounter - Andreea Lyon - 09/15/2024 12:17 PM CDT Sent to red flag triage documented in this encounter Plan of Treatment Upcoming Encounters Date Type Department Care Team (Late st Contact Info) Description 10/30/2024 1:00 PM CDT Appointment [facility] Diagnostic Imaging [address] [place] [address] Macarena Hudson PA-C [address] [place] [address] 10/30/2024 1:30 PM CDT Office Visit [facility] Spine and Neurosurgery [address] [place] [address] Macarena Hudson PA-C [address] [place] [address] Kassie Berkowitz PA-C [facility] [address] [facility] [place] [address] 11/25/2024 9:10 AM CDT Office Visit [facility] [place] [address] [facility] [address] [place] [phone] Katt Gaytan PA-C [address] [facility] [address] [place] [address] 01/20/2025 1:00 PM CDT Office Visit [facility] [place] [address] [place] [phone] Morning, Gaye Varela NP [address] [address] Kassie Rondon PA-C [address] [facility] [address] [place], [place] [address] 01/22/2025 Ancillary Procedure [facility] Heart [facility] [address] [facility] [address] [place] [phone] Julio Wright MD [address] [facility] [address] [place], [place] [id number] documented as of this encounter Visit Diagnoses Not on filedocumented in this encounter Additional Health Concerns Infection Onset Date Last Indicated Resolved Time Rule Out COVID-19 09/17/2024 09/17/2024 09/17/2024 11:52 AM CDT documented as of this encounter Care Teams Plaster Mold Maker Relationship Specialty Start Date End Date Morning, Gaye Varela NP [address] [place] [address] PCP - General Internal Medicine 07/29/24 Jeison Stout MD [address] [facility] [address] [place] [address] Assigned Heart and Vascular Provider 07/09/24 Tayla Collado PA-C [address] [address] Assigned Neuroscience Provider 08/09/24 10/06/24 Morning, Gaye Varela NP [address] [place] [address] Assigned PCP 08/09/24 Macarena Hudson PA-C [address] [facility] [address] [address] Assigned Neuroscience Provider 10/07/24 documented as of this encounter
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
--- OUTSIDE RECORDS SUMMARY | 2024-10-25 12:51 | XMS_ITS | Encounter Summary ---
Author Organization [facility] Address [address] [place] [address] Care Team Providers Care Viscose Department Worker Name Role Phone Jeison Stout MD Unavailable [phone] Morning, Gaye Varela NP Primary Care Provider [phone] Tayla Collado PA-C Unavailable [phone] Morning, Gaye Varela NP Unavailable [phone] Encounter Details Date Type Department Care Team (Late st Contact Info) Description 09/16/2024 1:45 PM CDT Lab [facility] Laboratory [address] [place] [address] Hyponatremia Social History Tobacco Use Types Packs/Day Years [...] re latives? 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 Diagnostic Imaging [address] [place] [phone] Macarena Hudson PA-C [address] [place] [address] 10/30/2024 1:30 PM CDT Office Visit [facility] Spine and Neurosurgery [address] [facility] [address] [place] [phone] Macarena Hudson PA-C [address] [place] [address] Kassie Berkowitz PA-C [facility] [address] [address] 11/25/2024 9:10 AM CDT Office Visit [facility] [place] [address] [facility] [address] [place] [address] Katt Gaytan PA-C [address] [facility] [address] [place] [address] 01/20/2025 1:00 PM CDT Office Visit [facility] [place] [address] [place] [phone] Morning, Gaye Varela, STAGE BUILDER [address] [facility] [address] [place] [id number] Kassie Rondon PA-C [address] [id number] 01/22/2025 Ancillary Procedure [facility] [place] [address] [facility] [address] [place] [address] Julio Wright MD [address] [facility] [address] [address] [place] [address] documented as of this encounter Procedures Procedure Name Priority Date/Time Associated Diagnosis Comments BASIC METABOLIC PANEL Routine 09/16/2024 1:42 PM CDT Hyponatremia documented in this encounter Results * (ABNORMAL) Basic metabolic [...] 7:06 PM CDT [facility] Comment:eGFR calculated us2020 CKD-EPI equation. Calcium 9.5 8.8 - 10.4 mg/dL 09/16/2024 7:06 PM CDT [facility] Glucose 127(H) 70 - 99 mg/dL 09/16/2024 7:06 PM CDT [facility] Blood BLOOD SPECIMEN / Unknown Venipuncture / Unknown 09/16/2024 1:42 PM CDT 09/16/2024 1:42 PM CDT us Gaye Varela Morning STAGE BUILDER LAB - BLOOD ORDERABLES Nisha kamara Result [facility] [place] [facility] [address] [facility] [facility], Room [address] [place] [address], [facility] documented in this encounter Visit Diagnoses Diagnosis Hyponatremia Hyposmolality and/or hyponatremia documented in this encounter Care Teams Viscose Department Worker Relationship Specialty Start Date End Date Morning, Gaye Varela NP [address] [address] PCP - General Internal Medicine 07/29/24 Jeison Stout MD [address] [facility] [address] [place] [address] Assigned Heart and Vascular Provider 07/09/24 Tayla Collado, PABella [address] [place] [address] Assigned Neuroscience Provider 08/09/24 10/06/24 Morning, Gaye Varela NP [address] [address] Assigned PCP 08/09/24 documented as of this encounter
--- OUTSIDE RECORDS SUMMARY | 2024-10-25 12:51 | XMS_ITS ---
Author Organization [place] Address [address] [place] [address] Care Team Providers Care Reproduction Order Processor Name Role Phone Jeison Stout MD Unavailable [phone] Morning, Gaye Varela NP Primary Care Provider [phone] Morning, Gaye Varela NP Unavailable [phone] Macarena Hudson PA-C Unavailable [phone] Primary Care Care Coordination Status:Declined (Declined) Start date:09/16/2024 End date:09/16/2024 Decline reason:Not interested Continued Care and Services Coordination
--- OUTSIDE RECORDS SUMMARY | 2024-10-25 12:51 | XMS_ITS | Encounter Summary ---
Author Organization [place] Address [address] [place] [address] Care Team Providers Care Acid Filler Name Role Phone Jeison Stout MD Unavailable [phone] Morning, Gaye Varela NP Primary Care Provider [phone] Tayla Collado PA-C Unavailable [phone] Morning, Gaye Varela NP Unavailable [phone] Encounter Details Date Type Department Care Team (Latest Contact Info) Description 09/15/2024 Travel Social History Tobacco Use Types Packs/Day [...] re latives? 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 Gender Identity Not on file Sexual Orientation Not on file documented as of this encounter Plan of Treatment Upcoming Encounters Date Type Department Care Team (Late st Contact Info) Description 10/30/2024 1:00 PM CDT Appointment [facility] Diagnostic Imaging [address] [place] [phone] Macarena Hudson PA-C [address] [place], [place] [phone] 10/30/2024 1:30 PM CDT Office Visit [facility] Spine and Neurosurgery [address] [facility] [address] [place] [phone] Macarena Hudson PA-C [address] [place], [place] [phone] Kassie Berkowitz PA-C [facility] [address] [id number] 11/25/2024 9:10 AM CDT Office Visit [facility] [address] [facility] [address] [place] [phone] Katt Gaytan PA-C [address] [facility] [address] [place] [address] 01/20/2025 1:00 PM CDT Office Visit [facility] [place] [address] [place] [phone] Morning, Gaye Varela, RURAL CARRIER [address] [facility] [address] [place] [id number] Kassie Rondon PA-C [address] [facility] [address] [address] 01/22/2025 Ancillary Procedure [facility] [address] [facility] [address] [place] [phone] Julio Wright MD [address] [facility] [address] [place] [address] documented as of this encounter Visit Diagnoses Not on filedocumented in this encounter Care Teams Acid Filler Relationship Specialty Start Date End Date Morning, Gaye Varela NP [address] [address] PCP - General Internal Medicine 07/29/24 Jeison Stout MD [address] [facility] [address] [place] [address] Assigned Heart and Vascular Provider 07/09/24 Tayla Collado PA-C [address] [place] [address] Assigned Neuroscience Provider 08/09/24 10/06/24 Morning, Gaye Varela NP [address] [address] Assigned PCP 08/09/24 documented as of this encounter
--- OUTSIDE RECORDS SUMMARY | 2024-10-25 12:51 | XMS_ITS | Encounter Summary ---
Author Organization [facility] Address [address] [place] [address] Care Team Providers Care Obedience Trainer Name Role Phone Jeison Stout MD Unavailable [phone] Morning, Gaye Varela NP Primary Care Provider [phone] Tayla Collado PA-C Unavailable [phone] Morning, Gaye Varela NP Unavailable [phone] Encounter Details Date Type Department Care Team (Latest Contact Info) Description 09/20/2024 Travel Social History Tobacco Use Types Packs/Day [...] re latives? 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 Gender Identity Not on file Sexual Orientation Not on file documented as of this encounter Plan of Treatment Upcoming Encounters Date Type Department Care Team (Late st Contact Info) Description 10/30/2024 1:00 PM CDT Appointment [facility] Diagnostic Imaging [address] [place] [phone] Macarena Hudson PA-C [address] [place], [place] [phone] 10/30/2024 1:30 PM CDT Office Visit [facility] Spine and Neurosurgery [address] [facility] [address] [place] [phone] Macarena Hudson PA-C [address] [place], [place] [phone] Kassie Berkowitz PA-C [facility] [address] [id number] 11/25/2024 9:10 AM CDT Office Visit [facility] [address] [facility] [address] [place] [phone] Katt Gaytan PA-C [address] [facility] 200 [place] [address] 01/20/2025 1:00 PM CDT Office Visit [facility] [place] [address] [place] [phone] Morning, Gaye Varela, QUALITY ASSURANCE TEST PROGRAM MANAGER [address] [facility] [facility] [address] [place] [id number] Kassie Rondon PA-C [address] [facility] [address] [address] 01/22/2025 Ancillary Procedure [facility] [address] [facility] [address] [place] [phone] Julio Wright MD [address] [facility] [address] [place] [address] documented as of this encounter Visit Diagnoses Not on filedocumented in this encounter Care Teams Obedience Trainer Relationship Specialty Start Date End Date Morning, Gaye Varela NP [address] [address] PCP - General Internal Medicine 07/29/24 Jeison Stout MD [address] [facility] [address] [place] [address] Assigned Heart and Vascular Provider 07/09/24 Tayla Collado PA-C [address] [place] [address] Assigned Neuroscience Provider 08/09/24 10/06/24 Morning, Gaye Varela NP [address] [address] Assigned PCP 08/09/24 documented as of this encounter
--- OUTSIDE RECORDS SUMMARY | 2024-10-25 12:51 | XMS_ITS | Clinical Summary ---
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 vertebral body chronic compression deformity. Please defer to concomitant MRI thoracic spine. Right L1, right L2, L3 vertebral bodies demonstrate mild chronic compression deformities. Remaining vertebral body heights within normal limits. No concerning bone marrow lesions. Normal distal spinal cord and cauda equina with conus medullaris at L1-L2. Unremarkable visualized bony pelvis. Left L5 chronic pars fracture. Moderate lumbar levoscoliosis. Multilevel degenerative disc disease. Several levels demonstrate mild degenerative type I and type II Modic changes. Multilevel facet arthropathy worse within the lower lumbar spine. Bilateral SI degenerative joint disease. L1-L2 mild degenerative grade 1 retrolisthesis measuring 1 to 2 mm. L2-3 grade 1 retrolisthesis measuring 7 mm. T12-L1: Mild bulge. No significant thecal sac stenosis. No significant foraminal stenosis. L1-L2: Mild bulge with posterior disc osteophyte ridge. No significant thecal sac stenosis. No significant neural foraminal stenosis. L2-L3: Bulge with bilateral foraminal extension. Facet hypertrophy. Severe thecal sac stenosis measuring 5 to 6 mm. Severe bilateral foraminal stenosis. L3-L4: Bulge. Left foraminal protrusion. Facet hypertrophy. Moderate thecal sac stenosis. Mild to moderate left foraminal stenosis. No significant right foraminal stenosis. L4-L5: Bulge with left greater than right foraminal extension. Facet hypertrophy. Mild to moderate thecal sac stenosis. Severe left foraminal stenosis with compression exiting left L4 nerve root. Moderate to severe right foraminal stenosis. L5-S1: Mild bulge. Facet hypertrophy. No significant thecal sac stenosis. No significant neural foraminal stenosis. EXTRASPINAL FINDINGS: No significant findings. Procedure Note Jalen Danielson MD - 08/09/2024 EXAM: MR LUMBAR SPINE W/O CONTRAST LOCATION: [facility] DATE: 08/07/2024 INDICATION: L2 and L3 compression deformities, fall COMPARISON: CT lumbar spine 06/15/2024 TECHNIQUE: Routine Lumbar Spine MRI without IV contrast. FINDINGS: Nomenclature is based on 5 lumbar type vertebral bodies. T12 vertebral body chronic compression deformity. Please defer toconcomitant MRI thoracic spine. Right L1, right L2, L3 vertebral bodiesdemonstrate mild chronic compression deformities. Remaining vertebral body heights within normal limits. No concerningbone marrow lesions. Normal distal spinal cord and cauda equina withconus medullaris at L1- L2. Unremarkable visualized bony pelvis. Left L5 chronic pars fracture. Moderate lumbar levoscoliosis. Multilevel degenerative disc disease.Several levels demonstrate mild degenerative type I and type II Modicchanges. Multilevel facet arthropathy worse within the lower lumbar spine.Bilateral SI degenerative joint disease. L1-L2 mild degenerative grade 1 retrolisthesis measuring 1 to 2 mm. L2-3 grade 1 retrolisthesis measuring 7 mm. T12-L1: Mild bulge. No significant thecal sac stenosis. No significantforaminal stenosis. L1-L2: Mild bulge with posterior disc osteophyte ridge. No significantthecal sac stenosis. No significant neural foraminal stenosis. L2-L3: Bulge with bilateral foraminal extension. Facet hypertrophy. Severethecal sac stenosis measuring 5 to 6 mm. Severe bilateral foraminalstenosis. L3-L4: Bulge. Left foraminal protrusion. Facet hypertrophy. Moderatethecal sac stenosis. Mild to moderate left foraminal stenosis. Nosignificant right foraminal stenosis. L4-L5: Bulge with left greater than right foraminal extension. Facethypertrophy. Mild to moderate thecal sac stenosis. Severe left foraminalstenosis with compression exiting left L4 nerve root. Moderate to severeright foraminal stenosis. L5-S1: Mild bulge. Facet hypertrophy. No significant thecal sac stenosis.No significant neural foraminal stenosis. EXTRASPINAL FINDINGS: No significant findings. IMPRESSION: 1. Chronic compression deformities described above. 2. Multilevel spondylosis described above. 3. L2-L3: Severe thecal sac stenosis. Severe bilateral foraminalstenosis. 4. L4-L5: Severe left foraminal stenosis with compression exiting left [id number] root. Moderate to severe right foraminal stenosis. us Tayla Collado PA-C [facility] MRI ORDERABLES Final Result * (ABNORMAL) Albumin Random Urine Quantitative with Creat Ratio (07/31/2024 8:47 AM EDUCATIONAL PSYCHOLOGY TEACHER) Creatinine Urine mg/dL 90.6 mg/dL 07/31/2024 8:16 PM EDUCATIONAL PSYCHOLOGY TEACHER [facility] Comment:The reference ranges have not been established in urine creatinine. The results should be integrated into the clinical context for interpretation. Albumin Urine mg/L 25.2 mg/L 2024 8:16 PM EDUCATIONAL PSYCHOLOGY TEACHER [facility] Comment:The reference ranges have not been established in urine albumin. The results should be integrated into the clinical context for interpretation. Albumin Urine mg/g Cr 27.81(H) 0.00 - 17.00 mg/g Cr 07/31/2024 8:16 PM EDUCATIONAL PSYCHOLOGY TEACHER [facility] Comment: Microalbuminuria is defined as an albumin:creatinine ratio of 17 to 299 for males and 25 to 299 for females. A ratio of albumin:creatinine of 300 or higher is indicative of overt proteinuria. Due to biologic variability, positive results should be confirmed by a second, first-morning random or 24-hour timed urine specimen. If there is discrepancy, a third specimen is recommended. When 2 out of 3 results are in the microalbuminuria range, this is evidence for incipient nephropathy and warrants increased efforts at glucose control, blood pressure control, and institution of therapy with an [id number] (NAZ) inhibitor (if the patient can tolerate it). Urine URINE SPECIMEN / Unknown Non-blood Collection / Unknown 07/31/2024 8:47 AM EDUCATIONAL PSYCHOLOGY TEACHER 07/31/2024 8:48 AM EDUCATIONAL PSYCHOLOGY TEACHER us Gaye Alexander SCOURING MACHINE TENDER LAB - URINE ORDERABLES Nisha kamara Result [facility] Core Lab [address] [facility], [address] [place] [phone] * Lipid panel reflex to direct LDL Non-fasting (07/29/2024 10:09 AM EDUCATIONAL PSYCHOLOGY TEACHER) Cholesterol 137 <200 mg/dL 07/29/2024 6:52 PM EDUCATIONAL PSYCHOLOGY TEACHER [facility] Triglycerides 42 <150 mg/dL 07/29/2024 6:52 PM EDUCATIONAL PSYCHOLOGY TEACHER [facility] Direct Measure HDL 52 >=40 mg/dL 2024 6:52 PM EDUCATIONAL PSYCHOLOGY TEACHER [facility] LDL Cholesterol Calculated 77 <100 mg/dL 07/29/2024 6:52 PM EDUCATIONAL PSYCHOLOGY TEACHER [facility] Non HDL Cholesterol 85 <130 mg/dL 07/29/2024 6:52 PM EDUCATIONAL PSYCHOLOGY TEACHER [facility] Patient Fasting > 8hrs? Yes 07/29/2024 6:52 PM EDUCATIONAL PSYCHOLOGY TEACHER [facility] Blood BLOOD SPECIMEN / Unknown Venipuncture / Unknown 07/29/2024 10:09 AM EDUCATIONAL PSYCHOLOGY TEACHER 07/29/2024 10:09 AM EDUCATIONAL PSYCHOLOGY TEACHER Narrative [facility] - 07/29/2024 6:52 PM EDUCATIONAL PSYCHOLOGY TEACHER Cholesterol Desirable: < 200 mg/dL Borderline High: 200 - 239 mg/dL High: >= 240 mg/dL Triglycerides Normal: < 150 mg/dL Borderline High: 150 - 199 mg/dL High: 200-499 mg/dL Very High: >= 500 mg/dL Direct Measure HDL Female: >= 50 mg/dL Male: >= 40 mg/dL LDL Cholesterol Desirable: < 100 mg/dL Above Desirable: 100 - 129 mg/dL Borderline High: 130 - 159 mg/dL High: 160 - 189 mg/dL Very High: >= 190 mg/dL Non HDL Cholesterol Desirable: < 130 mg/dL Above Desirable: 130 - 159 mg/dL Borderline High: 160 - 189 mg/dL High: 190 - 219 mg/dL Very High: >= 220 mg/dL Gaye M Morning SCOURING MACHINE TENDER LAB - BLOOD ORDERABLES Nisha l Result Performing Organization Address City/[facility] Co de Phone Number [facility] [place] [facility] Lab [address] [facility], [address] [place] [phone] * (ABNORMAL) Hemoglobin A1c (07/29/2024 10:09 AM EDUCATIONAL PSYCHOLOGY TEACHER) [facility] Estimated Average Glucose 131(H) <117 mg/dL 07/29/2024 10:20 AM EDUCATIONAL PSYCHOLOGY TEACHER [facility] Hemoglobin A1C 6.2(H) 0.0 - 5.6 % 07/29/2024 10:20 AM EDUCATIONAL PSYCHOLOGY TEACHER [facility] Comment: Normal <5.7% Prediabetes 5.7-6.4% Diabetes 6.5% or higher Note: Adopted from ADA consensus guidelines. Blood BLOOD SPECIMEN / Unknown Venipuncture / Unknown 07/29/2024 10:09 AM EDUCATIONAL PSYCHOLOGY TEACHER 07/29/2024 10:09 AM EDUCATIONAL PSYCHOLOGY TEACHER Gaye Morning SCOURING MACHINE TENDER LAB - BLOOD ORDERABLES Nisha l Result [facility] [id number] [place] [address] * (ABNORMAL) Comprehensive metabolic panel (BMP + Alb, Alk Phos, ALT, AST, Total. Bili, TP) (07/29/2024 10:09 AM EDUCATIONAL PSYCHOLOGY TEACHER) Sodium 133(L) 135 - 145 mmol/L 07/29/2024 6:53 PM EDUCATIONAL PSYCHOLOGY TEACHER [facility] Potassium 5.8(H) 3.4 - 5.3 mmol/L 07/29/2024 6:53 PM EDUCATIONAL PSYCHOLOGY TEACHER [facility] Carbon Dioxide (CO2) 22 22 - 29 mmol/L 07/29/2024 6:53 PM EDUCATIONAL PSYCHOLOGY TEACHER [facility] Anion Gap 12 7 - 15 mmol/L 07/29/2024 6:53 PM EDUCATIONAL PSYCHOLOGY TEACHER [facility] Urea Nitrogen 25.3(H) 8.0 - 23.0 mg/dL 07/29/2024 6:53 PM EDUCATIONAL PSYCHOLOGY TEACHER [facility] Creatinine 0.98 0.67 - 1.17 mg/dL 07/29/2024 6:53 PM EDUCATIONAL PSYCHOLOGY TEACHER [facility] GFR Estimate 77 >60 mL/min/1.7 3m2 07/29/2024 6:53 PM EDUCATIONAL PSYCHOLOGY TEACHER [facility] Comment:eGFR calculated us2020 CKD-EPI equation. Calcium 9.7 8.8 - 10.4 mg/dL 07/29/2024 6:53 PM EDUCATIONAL PSYCHOLOGY TEACHER [facility] Chloride 99 98 - 107 mmol/L 07/29/2024 6:53 PM EDUCATIONAL PSYCHOLOGY TEACHER [facility] Glucose 104(H) 70 - 99 mg/dL 07/29/2024 6:53 PM EDUCATIONAL PSYCHOLOGY TEACHER [facility] Alkaline Phosphatase 87 40 - 150 U/L 07/29/2024 6:53 PM EDUCATIONAL PSYCHOLOGY TEACHER [facility] AST 34 0 - 45 U/L 07/29/2024 6:53 PM EDUCATIONAL PSYCHOLOGY TEACHER [facility] ALT 22 0 - 70 U/L 07/29/2024 6:53 PM EDUCATIONAL PSYCHOLOGY TEACHER [facility] Protein Total 7.1 6.4 - 8.3 g/dL 07/29/2024 6:53 PM EDUCATIONAL PSYCHOLOGY TEACHER [facility] Albumin 4.2 3.5 - 5.2 g/dL 07/29/2024 6:53 PM EDUCATIONAL PSYCHOLOGY TEACHER [facility] Bilirubin Total 0.3 <=1.2 mg/dL 07/29/2024 6:53 PM EDUCATIONAL PSYCHOLOGY TEACHER [facility] Patient Fasting > 8hrs? Yes 07/29/2024 6:53 PM EDUCATIONAL PSYCHOLOGY TEACHER [facility] Blood BLOOD SPECIMEN / Unknown Venipuncture / Unknown 07/29/2024 10:09 AM EDUCATIONAL PSYCHOLOGY TEACHER 07/29/2024 10:09 AM EDUCATIONAL PSYCHOLOGY TEACHER Gaye M Morning SCOURING MACHINE TENDER LAB - BLOOD ORDERABLES Nisha l Result [facility] [place] [facility] Lab [address] [facility], [address] [phone] * Carbamazepine total (07/29/2024 10:09 AM EDUCATIONAL PSYCHOLOGY TEACHER) [facility] Signature Carbamazepine 10.8 4.0 - 12.0 ug/mL 07/29/2024 5:17 PM EDUCATIONAL PSYCHOLOGY TEACHER [facility] Blood BLOOD SPECIMEN / Unknown Venipuncture / Unknown 07/29/2024 10:09 AM EDUCATIONAL PSYCHOLOGY TEACHER 07/29/2024 10:09 AM EDUCATIONAL PSYCHOLOGY TEACHER Gaye M Morning SCOURING MACHINE TENDER LAB - BLOOD ORDERABLES Nisha l Result [facility] [place] [facility] [address] [facility], [address] [phone] from Last 3 Months Insurance [email or web address] Care Teams Specialty Foods Cook Relationship Specialty Start Date End Date Morning, Gaye Varela NP [address] [place] [address] PCP - General Internal Medicine 07/29/24 Jeison Stout MD [address] [facility] [address] [place] [address] Assigned Heart and Vascular Provider 07/09/24 Morning, Gaye Varela NP [address] [facility] [facility] [place] [address] Assigned PCP 08/09/24 Macarena Hudson PA-C [address] [place] [address] Assigned Neuroscience Provider 10/07/24
--- OUTSIDE RECORDS SUMMARY | 2024-10-25 12:51 | XMS_ITS | Encounter Summary ---
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 of Treatment Upcoming Encounters Date Type Department Care Team (Late st Contact Info) Description 10/30/2024 1:[address] [facility] Diagnostic Imaging [address] [place] [phone] Macarena Hudson PA-C [address] [place] [address] 10/30/2024 1:30 PM CDT Office Visit [facility] Spine and Neurosurgery [address] [facility] [address] [place] [phone] Macarena Hudson PA-C [address] [place], [place] [phone] Kassie Berkowitz PA-C [facility] [address] [place], [place] [address] 11/25/2024 9:10 AM CDT Office Visit [facility] [address] [facility] [address] [place] [phone] Katt Gaytan PA-C [address] [facility] [address] [place] [address] 01/20/2025 1:00 PM CDT Office Visit [facility] [address] [phone] Morning, Gaye Varela, HELPDESK ANALYST [address] [place] [address] Kassie Rondon PA-C [address] [address] 01/22/2025 Ancillary Procedure [facility] Heart [facility] [address] [facility] [address] [place] [address] Julio Wright MD [address] [facility] [address] [place] [address] documented as of this encounter Procedures Procedure Name Priority Date/Time Associated Diagnosis Comments SODIUM STAT 09/15/2024 10:02 PM CDT TROPONIN T, HIGH SENSITIVITY STAT 09/15/2024 7:05 PM CDT OSMOLALITY Add-On 09/15/2024 7:05 PM CDT SODIUM STAT 09/15/2024 7:05 PM CDT ROUTINE UA WITH MICROSCOPIC REFLEX TO CULTURE STAT 09/15/2024 6:17 PM CDT SODIUM RANDOM URINE Add-On 09/15/2024 6 :17 PM CDT OSMOLALITY, RANDOM URINE Add-On 09/15/2024 6:17 PM CDT CBC WITH PLATELETS AND DIFFERENTIAL STAT 09/15/2024 5:09 PM CDT TROPONIN T, HIGH SENSITIVITY STAT 09/15/2024 5:09 PM CDT CBC WITH PLATELETS & DIFFERENTIAL STAT 09/15/2024 5:09 PM CDT TSH WITH FREE T4 REFLEX STAT 09/15/2024 5:09 PM CDT PHOSPHORUS Add-On 09/15/2024 5:09 PM CDT MAGNESIUM STAT 09/15/2024 5:09 PM CDT BASIC METABOLIC PANEL STAT 09/15/2024 5:09 PM CDT ECG 12-LEAD WITH MUSE [facility] STAT 09/15/2024 3:37 PM CDT documented in this encounter Results * (ABNORMAL) Sodium (09/15/2024 10:02 PM CDT) Sodium 124(L) 135 - 145 mmol/L 09/15/2024 10:18 PM CDT [facility] Blood VENOUS LINE / Unknown Venipuncture / Unknown 09/15/2024 10:02 PM CDT 09/15/2024 10:07 PM CDT Dayana Stout PA-C LAB - BLOOD ORDERABL ES Final Result [facility] [address] [place] [address], [facility] * (ABNORMAL) Osmolality (09/15/2024 7:05 PM CDT) Osmolality Blood 271(L) 280 - 301 mmol/kg 09/16/2024 12:45 AM CDT LABORATORY Blood VENOUS LINE / Unknown Venipuncture / Unknown 09/15/2024 7:05 PM CDT 09/15/2024 7:11 PM CDT Narrative U LABORATORY - 09/16/2024 12:45 AM CDT Greater than 385 mmol/kg relates to stupor in hyperglycemia Greater than 400 mmol/kg can relate to seizures Greater than 420 mmol/kg can be lethal Serum Osmalar Gap: Normal <10 Larger suggest unmeasured substances present in serum (ethanol, methanol, isopropanol, mannitol, ethylene glycol). Dayana Stout PA-C LAB - BLOOD ORDERABL ES Final Result LABORATORY [facility] [address] [facility] [place], [address] [place] [phone] * (ABNORMAL) Sodium (09/15/2024 7:05 PM CDT) Sodium 124(L) 135 - 145 mmol/L 09/15/2024 7:28 PM CDT [facility] Blood VENOUS LINE / Unknown Venipuncture / Unknown 09/15/2024 7:05 PM CDT 09/15/2024 7:11 PM CDT Dayana Stout PA-C LAB - BLOOD ORDERABL ES Final Result Performing Organization Address City/[facility]/ZIP Co de Phone Number [facility] [address] [facility] [place], [place] [address] * Troponin T, High Sensitivity (09/15/2024 7:05 PM CDT) Troponin T, High Sensitivity 20 <=22 ng/L 09/15/2024 7:28 PM CDT [facility] Comment: Either a High Sensitivity Troponin [...] follow-up, or urgent outpatient provocative testing. Blood VENOUS LINE / Unknown Venipuncture / Unknown 09/15/2024 7:05 PM CDT 09/15/2024 7:11 PM CDT us Polo Kong MD LAB - BLOOD ORDERABLES Final Res ult [facility] [address] [place] [address], [facility] * Osmolality urine (09/15/2024 6:17 PM CDT) Osmolality Urine 468 100 - 1,200 mmol/kg 09/15/2024 10:18 PM CDT LABORATORY Urine URINE SPECIMEN OBTAINED BY CLEAN CATCH PROCEDURE / Unknown Non-blood Collection / Unknown 09/15/2024 6:17 PM CDT 09/15/2024 6:20 PM CDT Narrative LABORATORY - 09/15/2024 10:18 PM CDT Reference Ranges depend on patient's hydration status and renal function. Neonates: 75-300 mmol/kg 2 years and older, random specimens: 100-1200 mmol/kg; Greater than 850 mmol/kg after 12 hour fluid restriction Urine/serum osmolality ratio: 2 years and older: 1.0-3.0; 3.0-4.7 after 12 hour fluid restriction Dayana Stout PA-C LAB - URINE ORDERABL ES Final Result Performing Organization Address [facility] de Phone Number LABORATORY [facility] Core Lab [address] [facility] [place] [place], [address] [place] [phone] * Sodium random urine (09/15/2024 6:17 PM CDT) Sodium Urine mmol/L 38 mmol/L 09/15/2024 10:32 PM CDT [facility] Comment:The reference ranges have not been established in urine sodium. The results should be integrated into the clinical context for interpretation. Urine URINE SPECIMEN OBTAINED BY CLEAN CATCH PROCEDURE / Unknown Non-blood Collection / Unknown 09/15/2024 6:17 PM CDT 09/15/2024 6:20 PM CDT Dayana Stout PA-C LAB - URINE ORDERABL ES Final Result [facility] [address] [facility] [place] [address], [facility] * (ABNORMAL) UA with Microscopic reflex to Culture (09/15/2024 6:17 PM CDT) Color Urine Yellow Colorless, Straw, Light Yellow, Yellow 09/15/2024 6:39 PM [facility] Appearance Urine Clear Clear 09/16/19 6:39 PM CDT [facility] Glucose Urine Negative Negative mg/dL 09/15/2024 6:39 PM [facility] Bilirubin Urine Negative Negative 6:39 PM [facility] Ketones Urine Negative Negative mg/dL 09/15/2024 6:39 PM [facility] Specific [place] Urine 1.019 1.001 - 1.030 09/15/2024 6:39 PM [facility] Blood Urine Negative Negative 09/15/2024 6:39 PM [facility] pH Urine 6.5 5.0 - 7.0 09/15/2024 6:39 PM CDT [facility] Protein Albumin Urine 10(A) Negative mg/dL 09/15/2024 6:39 PM [facility] Urobilinogen Urine Normal Normal mg/dL 09/15/2024 6:39 PM [facility] Nitrite Urine Negative Negative 09/15/2024 6:39 PM [facility] Leukocyte Esterase Urine Negative Negative 09/15/2024 6:39 PM [facility] Mucus Urine Present(A) None Seen /LPF 09/15/2024 6:39 PM [facility] RBC Urine <1 <=2 /HPF 09/15/2024 6:39 PM [facility] WBC Urine 1 <=5 /HPF 09/15/2024 6:39 PM [facility] Hyaline Casts Urine 17(H) <=2 /LPF 09/15/2024 6:39 PM [facility] Urine URINE SPECIMEN OBTAINED BY CLEAN CATCH PROCEDURE / Unknown Non-blood Collection / Unknown 09/15/2024 6:17 PM CDT 09/15/2024 6:20 PM CDT [facility] LABORATORY - 09/15/2024 6:39 PM CDT Urine Culture not indicated Dayana GOLDSTEIN-Alyson LAB - URINE ORDERABL ES Final Result Performing Organization Address [facility]/ZIP Co de Phone Number [address] [place] [address] * TSH with free T4 reflex (09/15/2024 5:09 PM CDT) TSH 3.68 0.30 - 4.20 uIU/mL 09/15/2024 7:02 PM CDT [facility] Blood BLOOD SPECIMEN / Unknown Venipuncture / Unknown 09/15/2024 5:09 PM CDT 09/15/2024 5:21 PM CDT Dayana MORENOC LAB - BLOOD ORDERABL ES Final Result Performing Organization Address [facility] Co de Phone Number [address] [place] [address], [facility] * Phosphorus (09/15/2024 5:09 PM CDT) Phosphorus 3.7 2.5 - 4.5 mg/dL 09/15/2024 7:02 PM CDT [facility] Blood BLOOD SPECIMEN / Unknown Venipuncture / Unknown 09/15/2024 5:09 PM CDT 09/15/2024 5:21 PM CDT Dayana MORENOC LAB - BLOOD ORDERABL ES Final Result Performing Organization Address [facility]/ZIP Co de Phone Number [facility] [address] [place] [address] [address] [place] [address], [facility] * Magnesium (09/15/2024 5:09 PM CDT) Magnesium 2.0 1.7 - 2.3 mg/dL 09/15/2024 7:13 PM CDT [facility] Blood BLOOD SPECIMEN / Unknown Venipuncture / Unknown 09/15/2024 5:09 PM CDT 09/15/2024 5:21 PM CDT us Dayana Stout PA-C LAB - BLOOD ORDERABL ES Final Result [facility] [address] [place] [address], [facility] * (ABNORMAL) CBC with platelets and differential (09/15/2024 5:09 PM CDT) WBC Count 8.0 4.0 - 11.0 10e3/uL 09/15/2024 5:23 PM CDT [facility] RBC Count 4.19(L) 4.40 - 5.90 10e6/uL 09/15/2024 5:23 PM CDT [facility] Hemoglobin 12.5(L) 13.3 - 17.7 g/dL 09/15/2024 5:23 PM CDT [facility] Hematocrit 37.0(L) 40.0 - 53.0 % 09/15/2024 5:23 PM CDT [facility] MCV 88 78 - 100 fL 09/15/2024 5:23 PM CDT [facility] MCH 29.8 26.5 - 33.0 pg 09/15/2024 5:23 PM CDT [facility] MCHC 33.8 31.5 - 36.5 g/dL 09/15/2024 5:23 PM CDT [facility] RDW 14.7 10.0 - 15.0 % 09/15/2024 5:23 PM CDT [facility] Platelet Count 230 150 - 450 10e3/uL 09/15/2024 5:23 PM CDT [facility] % Neutrophils 55 % 09/15/2024 5:23 PM CDT [facility] % Lymphocytes 26 % 09/15/2024 5:23 PM CDT [facility] % Monocytes 11 % 09/15/2024 5:23 PM CDT [facility] % Eosinophils 7 % 09/15/2024 5:23 PM CDT [facility] % Basophils 0 % 09/15/2024 5:23 PM CDT [facility] % Immature Granulocytes 1 % 09/15/2024 5:23 PM CDT [facility] NRBCs per 100 WBC 0 <1 /100 025 5:23 PM CDT [facility] Absolute Neutrophils 4.4 1.6 - 8.3 10e3/uL 09/15/2024 5:23 PM CDT [facility] Absolute Lymphocytes 2.1 0.8 - 5.3 10e3/uL 09/15/2024 5:23 PM CDT [facility] Absolute Monocytes 0.9 0.0 - 1.3 10e3/uL 09/15/2024 5:23 PM CDT [facility] Absolute Eosinophils 0.6 0.0 - 0.7 10e3/uL 09/15/2024 5:23 PM CDT [facility] Absolute Basophils 0.0 0.0 - 0.2 10e3/uL 09/15/2024 5:23 PM CDT [facility] Absolute Immature Granulocytes 0.0 <=0.4 10e3/uL 09/15/2024 5:23 PM CDT [facility] Absolute NRBCs 0.0 10e3/uL 09/15/2024 5:23 PM CDT [facility] Blood BLOOD SPECIMEN / Unknown Venipuncture / Unknown 09/15/2024 5:09 PM CDT 09/15/2024 5:21 PM CDT us Polo Kong MD LAB - BLOOD ORDERABLES Final Res ult [facility] [address] [place] [address], [facility] * (ABNORMAL) Troponin T, High Sensitivity (09/15/2024 5:09 PM CDT) Troponin T, High Sensitivity 23(H) <=22 ng/L 09/15/2024 5:39 PM CDT [facility] Comment: Either a High Sensitivity Troponin [...] 5:09 PM CDT 09/15/2024 5:21 PM CDT us Polo Kong MD LAB - BLOOD ORDERABLES Final Res ult [facility] [address] [place] [address], [facility] * (ABNORMAL) Basic metabolic panel (09/15/2024 5:09 PM CDT) Sodium 125(L) 135 - 145 mmol/L 09/15/2024 5:45 PM T [facility] Potassium 5.3 3.4 - 5.3 mmol/L 09/15/2024 5:45 PM T [facility] Chloride 89(L) 98 - 107 mmol/L 09/15/2024 5:45 PM T [facility] Carbon Dioxide (CO2) 26 22 - 29 mmol/L 09/15/2024 5:45 PM [facility] Anion Gap 10 7 - 15 mmol/L 09/15/2024 5:45 PM [facility] Urea Nitrogen 19.6 8.0 - 23.0 mg/dL 09/15/2024 5:45 PM T [facility] Creatinine 0.86 0.67 - 1.17 mg/dL 09/15/2024 5:45 PM [facility] GFR Estimate 86 >60 mL/min/1.7 3m2 09/15/2024 5:45 PM [facility] Comment:eGFR calculated usin 2020 CKD-EPI equation. Calcium 9.4 8.8 - 10.4 mg/dL 09/15/2024 5:45 PM T [facility] Glucose 113(H) 70 - 99 mg/dL 09/15/2024 5:45 PM T [facility] Blood BLOOD SPECIMEN / Unknown Venipuncture / Unknown 09/15/2024 5:09 PM CDT 09/15/2024 5:21 PM CDT us Polo Kong MD LAB - BLOOD ORDERABLES Final Res ult [facility] [address] [facility] [place] [address], [facility] * ECG 12-LEAD WITH MUSE (LHE) (09/15/2024 3:37 PM CDT) Systolic Blood Pressure mmHg RADIOLOGY RESULTS Diastolic Blood Pressure mmHg RADIOLOGY RESULTS Ventricular Rate 51 BPM RAD IOLOGY RESULTS Atrial Rate 51 BPM RADIOLOG Y RESULTS NC Interval 230 ms RADIOLOG Y RESULTS QRS Duration 170 ms RADIOLO GY RESULTS QT 492 ms RADIOLOGY RESULTS QTc 453 ms RADIOLOGY RESULTS P [place] 75 degrees RADIOLOGY RESULTS R AXIS -61 degrees RADIOLOGY RESULTS T [place] 60 degrees RADIOLOGY RESULTS Interpretation ECG Sinus bradycardia with 1st degree A-V block Left axis deviation Non-specific intra-ventricular conduction block Abnormal ECG When compared with ECG of 15-Jun-2024 14:43, Nonspecific T wave abnormality has replaced inverted T waves in Lateral leads Confirmed by SEE ED PROVIDER NOTE FOR, ECG INTERPRETATION (4000), brands editor FABIOLA MONTENEGRO ([id number]) on 09/15/2024 9:14:21 PM RADIOLOGY RESULTS 09/15/2024 3:37 PM CDT 09/15/2024 9:14 PM CDT us Polo Kong MD ECG ORDERABLES Edited Result - Final RADIOLOGY RESULTS documented in this encounter Visit Diagnoses Diagnosis Hyponatremia- Primary Hyposmolality and/or hyponatremia Lightheadedness Dizziness and giddiness Transient hypotension Nonspecific low blood pressure reading documented in this encounter Administered Medications Inactive Administered Medications - up to 3 most recent administrations Medication Order MAR Action Action Date Dose Rate Site sodium chloride 0.9% BOLUS 1,000 mL Intravenous, 1,000 mL, ONCE, at 1,000 mL/hr, Administer over 1 Hours, On Sat09/15/24 at 1600, For 1 dose $New Bag 09/15/2024 5:09 PM CDT 1,000 mLs 1000 mL/hr documented in this encounter Active and Recently Administered Medications Times are shown in CDT. Scheduled Medication Order 09/13/2024 09/14/2024 09/15/2024 sodium chloride 0.9% BOLUS 1,000 mL (COMPLETED) Intravenous, 1,000 mL, ONCE, at 1,000 mL/hr, Administer over 1 Hours, On Sat09/15/24 at 1600, For 1 dose 1709 ($New Bag - Pro vider: Krishna Liu RN)[id number] (Stopped - Provider: Krishna Liu RN) documented in this encounter Care Teams Annealing Oven Operator Relationship Specialty Start Date End Date Morning, Gaye Varela NP [address] [address] PCP - General Internal Medicine 07/29/24 Jeison Stout MD [address] [facility] [address] [place] [address] Assigned Heart and Vascular Provider 07/09/24 Tayla Collado, ULISES [address] [place] [address] Assigned Neuroscience Provider 08/09/24 10/06/24 Morning, Gaye Varela NP [address] [address] Assigned PCP 08/09/24 documented as of this encounter
--- OUTSIDE RECORDS SUMMARY | 2024-10-25 12:51 | XMS_ITS | Encounter Summary ---
Author Organization [facility] Address [address] [place] [address]. [place] [address] Care Team Providers Care Rod Piler Name Role Phone Jeison Stout MD Unavailable [phone] Morning, Gaye Varela NP Primary Care Provider [phone] Tayla Collado PA-C Unavailable [phone] Morning, Gaye Varela NP Unavailable [phone] Encounter Details Date Type Department Care Team (Late st Contact Info) Description 09/14/2024 Medical Correspondence [facility] Health Information Management [address] [facility] [address] [place] [phone] Scan, Non-Provider Social History Tobacco Use Types Packs/Day Years [...] re latives? 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 Gender Identity Not on file Sexual Orientation Not on file documented as of this encounter Plan of Treatment Upcoming Encounters Date Type Department Care Team (Late st Contact Info) Description 10/30/2024 1:00 PM CDT Appointment [facility] Diagnostic Imaging [address] [place] [phone] Macarena Hudson PA-C [address] [place] [address] 10/30/2024 1:30 PM CDT Office Visit [facility] Spine and Neurosurgery [address] [facility] [address] [place] [phone] Macarena Hudson PA-C [address] [place] [address] Kassie Berkowitz PA-C [facility] [address] [id number] 11/25/2024 9:10 AM CDT Office Visit [facility] [address] [facility] [address] [place] [phone] Katt Gaytan PA-C [address] [facility] [address] [place] [address] 01/20/2025 1:00 PM CDT Office Visit [facility] [place] [address] [place] [phone] Morning, Gaye Varela, DRILLING INSPECTOR [address] [facility] [address] [place] [phone] Kassie Rondon PA-C [address] [id number] 01/22/2025 Ancillary Procedure [facility] [address] [facility] [address] [place] [address] Julio Wright MD [address] [facility] [address] [place] [address] documented as of this encounter Visit Diagnoses Not on filedocumented in this encounter Additional Health Concerns Infection Onset Date Last Indicated Resolved Time Rule Out COVID-19 09/17/2024 09/17/2024 09/17/2024 11:52 AM CDT documented as of this encounter Care Teams Rod Piler Relationship Specialty Start Date End Date Morning, Gaye Varela NP [address] [address] PCP - General Internal Medicine 07/29/24 Jeison Stout MD [address] [facility] [address] [place] [address] Assigned Heart and Vascular Provider 07/09/24 Tayla Collado PA-C [address] [place] [address] Assigned Neuroscience Provider 08/09/24 10/06/24 Morning, Gaey Varela NP [address] [address] Assigned PCP 08/09/24 documented as of this encounter
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
--- OUTSIDE RECORDS SUMMARY | 2024-10-25 12:52 | XMS_ITS | Encounter Summary ---
Author Organization [facility] Address [address] [place] [address]. [place] [address] Care Team Providers Care Buggy Operator Name Role Phone Jeison Stout MD Unavailable [phone] Morning, Gaye Varela NP Primary Care Provider [phone] Tayla Collado PA-C Unavailable [phone] Morning, Gaye Varela NP Unavailable [phone] Reason for Visit * Reason Onset Date Comments Call Back 09/30/2024 Pt requesting ca ll back for clarification on their directions given from their lab results & medication Encounter Details Date Type Department Care Team (Late st Contact Info) Description 09/30/2024 Telephone [facility] [address] [place] [address] Morning, Gaye Varela NP [address] [facility] [place] [phone] Call Back (Pt requesting call back for clarification on their directions given from their lab results & medication) Social History Tobacco Use Types Packs/Day Years [...] re latives? Once a week 07/28/2024 Attends Shinto Services Not on file 07/28 Active Member of Clubs or Organizations Not on f ile 07/28/2024 Attends Club or Organization Meetings Not on wilman e 07/28/2024 Marital Status Not on file 07/28/2024 PHQ-2 Answer Date Recorded PHQ-2 Score 2 07/29/2024 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 I also assisted to sched lab only appt. He asked about taking tylenol. I review total mg per day parameters and specified that less would be better. He is finding pain relief taking a morning and nighttime dose * Telephone Encounter - Silvia Vanessa - 09/30/2024 7:50 AM CDT Patient Returning Call Reason for call: Pt requesting call back for clarification on their directions given from their labresults & medication Information relayed to patient: N/A Patient has additional questions: Yes What are your questions/concerns: Pt would like clarification on pt's recommendation from their recent lab results as well as medication clarification / questions (how long they should take Tylenol for pain) Who does the patient want to speak with: Provider Is an hand paster needed?: No Could we send this information to you in [facility] or would you prefer to receive a phone call?: Patient would prefer a phone call Okay to leave a detailed message?: Yes at Cell number on file: Telephone Information: documented in this encounter Plan of Treatment Upcoming Encounters Date Type Department Care Team (Late st Contact Info) Description 10/30/2024 1:00 PM CDT Appointment [facility] Diagnostic Imaging [address] [place] [phone] Macarena Hudson PA-C [address] [facility] [place] [address] 10/30/2024 1:30 PM CDT Office Visit [facility] Spine and Neurosurgery [address] [facility] [address] [place] [phone] Macarena Hudson PA-C [address] [facility] [place] [address] Kassie Berkowitz PA-C [facility] [address] [id number] 11/25/2024 9:10 AM CDT Office Visit [facility] 1600 [facility] [address] [place] [phone] Katt Gaytan PA-C [address] [facility] [address] [place] [address] 01/20/2025 1:00 PM CDT Office Visit [facility] [address] [phone] Morning, Gaye Varela, PERSONAL BANKING ASSISTANT [address] [facility] [address] [facility] [address] [place] [phone] Kassie Rondon PA-C [address] [facility] [address] [id number] 01/22/2025 Ancillary Procedure [facility] [address] [facility] [address] [place] [phone] Julio Wright MD [address] [facility] [address] [place], [place] [phone] documented as of this encounter Visit Diagnoses Not on filedocumented in this encounter Care Teams Buggy Operator Relationship Specialty Start Date End Date Morning, Gaye Varela NP [address] [address] PCP - General Internal Medicine 07/29/24 Jeison Stout MD [address] [facility] [address] [place] [address] Assigned Heart and Vascular Provider 07/09/24 Tayla Collado PA-C [address] [place] [address] Assigned Neuroscience Provider 08/09/24 10/06/24 Morning, Gaye Varela NP [address] [address] Assigned PCP 08/09/24 documented as of this encounter
--- OUTSIDE RECORDS SUMMARY | 2024-10-25 12:52 | XMS_ITS | Encounter Summary ---
Author Organization [facility] Address [address] [place] [address]. [place] [address] Care Team Providers Care Weasand Trimmer Name Role Phone Jeison Stout MD Unavailable [phone] Morning, Gaye Varela NP Primary Care Provider [phone] Tayla Collado PA-C Unavailable [phone] Morning, Gaye Varela NP Unavailable [phone] Reason for Visit * Reason Onset Date Comments Refill Request 10/06/2024 Encounter Details Date Type Department Care Team (Late st Contact Info) Description 10/06/2024 [facility] [address] [place] [phone] Morning, Gaye Varela NP [address] [facility] [place] [phone] Refill Request Social History Tobacco Use Types Packs/Day Years [...] re latives? 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 Gender Identity Not on file Sexual Orientation Not on file documented as of this encounter Plan of Treatment Upcoming Encounters Date Type Department Care Team (Late st Contact Info) Description 10/30/2024 1:00 PM CDT Appointment [facility] Diagnostic Imaging [address] [place] [phone] Macarena Hudson PA-C [address] [place] [address] 10/30/2024 1:30 PM CDT Office Visit [facility] Spine and Neurosurgery [address] [facility] [address] [place] [phone] Macarena Hudson PA-C [address] [place] [address] Kassie Berkowitz PA-C [facility] [address] [facility] [place] [address] 11/25/2024 9:10 AM CDT Office Visit [facility] Heart [facility] [place] [address] [facility] [address] [place] [phone] Katt Gaytan PA-C [address] [facility] [address] [place] [address] 01/20/2025 1:00 PM CDT Office Visit [facility] Sleep Center [place] [address] [place] [phone] Morning, Gaye Varela, NUCLEAR ENGINEERING TECHNICIAN [address] [facility] [address] [place] [phone] Kassie Rondon PA-C [address] [facility] [address] [address] 01/22/2025 Ancillary Procedure [facility] [place] [address] [facility] [address] [place] [address] Julio Wright MD [address] [facility] [address] [place], [place] [phone] documented as of this encounter Visit Diagnoses Diagnosis Weak urinary stream Slowing of urinary stream documented in this encounter Care Teams Weasand Trimmer Relationship Specialty Start Date End Date Catherine, Gaye Varela NP [address] [place] [address] PCP - General Internal Medicine 07/29/24 Jeison Stout MD [address] [facility] [address] [place] [address] Assigned Heart and Vascular Provider 07/09/24 Tayla Collado PA-C [address] [facility] [place] [id number] Assigned Neuroscience Provider 08/09/24 10/06/24 Gaye Alexander NP [address] [place] [address] [address] Assigned PCP 08/09/24 documented as of this encounter
--- OUTSIDE RECORDS SUMMARY | 2024-10-25 12:52 | XMS_ITS | Encounter Summary ---
Author Organization [facility] Address [address] [place] [address] Care Team Providers Care Justice Court Deputy Clerk Name Role Phone Jeison Stout MD Unavailable [phone] Morning, Gaye Varela NP Primary Care Provider [phone] Tayla Collado PA-C Unavailable [phone] Morning, Gaye Varela NP Unavailable [phone] Encounter Details Date Type Department Care Team (Latest Contact Info) Description 10/05/2024 Travel Social History Tobacco Use Types Packs/Day [...] re latives? 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 Gender Identity Not on file Sexual Orientation Not on file documented as of this encounter Plan of Treatment Upcoming Encounters Date Type Department Care Team (Late st Contact Info) Description 10/30/2024 1:00 PM CDT Appointment [facility] Diagnostic Imaging [address] [place] [phone] Macarena Hudson PA-C [address] [place], [place] [phone] 10/30/2024 1:30 PM CDT Office Visit [facility] Spine and Neurosurgery [address] [facility] [address] [place] [phone] Macarena Hudson PA-C [address] [place], [place] [phone] Kassie Berkowitz PA-C [facility] [address] [id number] 11/25/2024 9:10 AM CDT Office Visit [facility] [address] [facility] [address] [place] [phone] Katt Gaytan PA-C [address] [facility] 200 [place] [address] 01/20/2025 1:00 PM CDT Office Visit [facility] Sleep [facility] [place] [phone] [place] [phone] Morning, Gaye Varela, SENIOR NETWORK ADMINISTRATOR [address] [place] [phone] Kassie Rondon PA-C [address] [facility] [address] [id number] 01/22/2025 Ancillary Procedure [facility] [address] [facility] [address] [place] [phone] Julio Wright MD [address] [facility] [address] [place] [address] documented as of this encounter Visit Diagnoses Not on filedocumented in this encounter Care Teams Justice Court Deputy Clerk Relationship Specialty Start Date End Date Morning, Gyae Varela NP [address] [address] PCP - General Internal Medicine 07/29/24 Jeison Stout MD [address] [facility] [address] [place] [address] Assigned Heart and Vascular Provider 07/09/24 Tayla Collado PA-C [address] [place] [address] Assigned Neuroscience Provider 08/09/24 10/06/24 Morning, Gaye Varela NP [address] [address] Assigned PCP 08/09/24 documented as of this encounter
--- OUTSIDE RECORDS SUMMARY | 2024-10-25 12:52 | XMS_ITS | Encounter Summary ---
Author Organization [place] Address [address] [place] [address] Care Team Providers Care Magnetizer Name Role Phone Jeison Stout MD Unavailable [phone] Morning, Gaye Varela NP Primary Care Provider [phone] Tayla Collado PA-C Unavailable [phone] Morning, Gaye Varela NP Unavailable [phone] Encounter Details Date Type Department Care Team (Late st Contact Info) Description 09/28/2024 10:15 AM CDT Lab [facility] [address] [place] [address] Hyponatremia Social History Tobacco Use [...] re latives? 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 Gender Identity Not on file Sexual Orientation Not on file documented as of this encounter Plan of Treatment Upcoming Encounters Date Type Department Care Team (Late st Contact Info) Description 10/30/2024 1:00 PM CDT Appointment [facility] Diagnostic Imaging [address] [place] [phone] Macarena Hudson PA-C [address] [place] [address] 10/30/2024 1:30 PM CDT Office Visit [facility] Spine and Neurosurgery [address] [facility] [address] [place] [address] Macarena Hudson PA-C [address] [place] [address] Kassie Berkowitz PA-C [facility] [address] [address] 11/25/2024 9:10 AM CDT Office Visit [facility] [place] [address] [facility] [address] [place] [address] Katt Gyatan PA-C [address] [facility] [address] [place] [address] 01/20/2025 1:00 PM CDT Office Visit [facility] [place] [address] [place] [phone] Morning, Gaye Varela, SENIOR INTEGRATION ARCHITECT [address] [place] [id number] Kassie Rondon PA-C [address] [address] 01/22/2025 Ancillary Procedure [facility] [place] [facility] [address] [facility] [address] [place] [address] Julio Wright MD [address] [facility] [address] [place] [address] documented as of this encounter Procedures Procedure Name Priority Date/Time Associated Diagnosis Comments BASIC METABOLIC PANEL Routine 09/28/2024 10:19 AM CDT Hyponatremia documented in this encounter Results * (ABNORMAL) Basic metabolic panel (09/28/2024 10:19 [...] 5:01 PM CDT [facility] Comment:eGFR calculated us2020 CKD-EPI equation. Calcium 9.2 8.8 - 10.4 mg/dL 09/28/2024 5:01 PM CDT [facility] Glucose 115(H) 70 - 99 mg/dL 09/28/2024 5:01 PM CDT [facility] Blood BLOOD SPECIMEN / Unknown Venipuncture / Unknown 09/28/2024 10:19 AM CDT 09/28/2024 10:19 AM CDT us Gaye Varela Morning SENIOR INTEGRATION ARCHITECT LAB - BLOOD ORDERABLES Nisha kamara Result [facility] [address] [facility] [address], [address] [place] [address], [facility] documented in this encounter Visit Diagnoses Diagnosis Hyponatremia Hyposmolality and/or hyponatremia documented in this encounter Care Teams Magnetizer Relationship Specialty Start Date End Date Morning, Gaye Varela NP [address] [address] PCP - General Internal Medicine 07/29/24 Jeison Stout MD [address] [facility] [address] [place] [address] Assigned Heart and Vascular Provider 07/09/24 Tayla Collado, PAGabriellaC [address] [place] [address] Assigned Neuroscience Provider 08/09/24 10/06/24 Morning, Gaye Varela NP [address] [address] Assigned PCP 08/09/24 documented as of this encounter
--- OUTSIDE RECORDS SUMMARY | 2024-10-25 12:52 | XMS_ITS | Encounter Summary ---
Author Organization [place] Address [address] [place] [address] Care Team Providers Care Clerk Telegraph Service Name Role Phone Jeison Stout MD Unavailable [phone] Morning, Gaye Varela NP Primary Care Provider [phone] Morning, Gaye Varela NP Unavailable [phone] Macarena Hudson PA-C Unavailable [phone] Encounter Details Date Type Department Care Team (Late st Contact Info) Description 10/20/2024 Telephone [facility] [address] [facility] [address] [place] [address] Talon Patiño, RN Social History Tobacco Use Types Packs/Day Years [...] re latives? 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 Patient called reporting that last week he walked up 8 steps of stairs and felt really weak he had to stop and sit down for a while. He says a few days after, he was able to walk up 20 steps of stairs without issues. He then reports that after pushing a chair from his garage to his backyard, his blood pressure increase to 180/90 and he had a faster heart rate around 90bpm per his blood pressure monitor. He would like to know if there were any episodes noted on his ILR. Informed patient that there has not been any auto detected episodes. We reviewed the parameters andwhat constitutes as an episode. Patient expressed relief at the information provided. He will contact his PMD if he still has concerns. No other questions or concerns at this time. Talon Patiño, RN Device Nurse documented in this encounter Plan of Treatment Upcoming Encounters Date Type Department Care Team (Late st Contact Info) Description 10/30/2024 1:00 PM CDT Appointment [facility] Diagnostic Imaging [address] [place] [phone] Macarena Hudson PA-C [address] [place], [place] [phone] 10/30/2024 1:30 PM CDT Office Visit [facility] Spine and Neurosurgery [address] [facility] [address] [place] [phone] Macarena Hudson PA-C [address] [place], [place] [phone] Kassie Berkowitz PA-C [facility] [address] [facility] [address] [place] [id number] 11/25/2024 9:10 AM CDT Office Visit [facility] [address] [facility] [address] [place] [phone] Katt Gaytan PA-C [address] [facility] [address] [place] [address] 01/20/2025 1:00 PM CDT Office Visit [facility] [place] [address] [place] [phone] Morning, Gaye Varela NP [address] [address] Kassie Rondon PA-C [address] [facility] [address] [place] [address] 01/22/2025 Ancillary Procedure [facility] [address] [facility] [address] [place] [phone] Julio Wright MD [address] [facility] 200 [place] [address] documented as of this encounter Visit Diagnoses Not on filedocumented in this encounter Care Teams Clerk Telegraph Service Relationship Specialty Start Date End Date Morning, Gaye Varela NP [address] [address] PCP - General Internal Medicine 07/29/24 Jeison Stout MD [address] [facility] 200 [place] [address] Assigned Heart and Vascular Provider 07/09/24 Morning, Gaye Varela NP [address] [address] Assigned PCP 08/09/24 Macarena Hudson PA-C [address] [address] Assigned Neuroscience Provider 10/07/24 documented as of this encounter
--- OUTSIDE RECORDS SUMMARY | 2024-10-25 12:52 | XMS_ITS | Encounter Summary ---
Author Organization [place] Address [address] [place] [address] Care Team Providers Care Batch Freezer Name Role Phone Jeison Stout MD Unavailable [phone] Morning, Gaye Varela NP Primary Care Provider [phone] Morning, Gaye Varela NP Unavailable [phone] Macarena Hudson PA-C Unavailable [phone] Encounter Details Date Type Department Care Team (Late st Contact Info) Description 10/22/2024 Results Follow-Up [facility] 18[address] [place] [address] Frank Mukherjee MD [address] [place] [address] Subj: Message about your results Social History Tobacco Use Types Packs/Day Years [...] re latives? 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 Gender Identity Not on file Sexual Orientation Not on file documented as of this encounter Plan of Treatment Upcoming Encounters Date Type Department Care Team (Late st Contact Info) Description 10/30/2024 1:00 PM CDT Appointment [facility] Diagnostic Imaging [address] [place] [phone] Macarena Hudson PA-C [address] [place] [address] 10/30/2024 1:30 PM CDT Office Visit [facility] Spine and Neurosurgery [address] [facility] [address] [place] [address] Macarena Hudson PA-C [address] [place] [address] Kassie Berkowitz PA-C [facility] [address] [address] 11/25/2024 9:10 AM CDT Office Visit [facility] Heart [facility] [place] [address] [facility] [address] [place] [phone] Katt Gaytan PA-C [address] [facility] [address] [place] [address] 01/20/2025 1:00 PM CDT Office Visit [facility] Sleep Center [place] [address] [place] [phone] Morning, Gaye Varela, HORTICULTURAL FARMER [address] [place] [phone] Kassie Rondon PA-C [address] [address] 01/22/2025 Ancillary Procedure [facility] [place] [address] [facility] [address] [place] [address] Julio Wright MD [address] [facility] [address] [place] [address] documented as of this encounter Visit Diagnoses Not on filedocumented in this encounter Care Teams Batch Freezer Relationship Specialty Start Date End Date Morning, Gaye Varela NP [address] [place] [address] PCP - General Internal Medicine 07/29/24 Jeison Stout MD [address] [facility] [address] [place] [address] Assigned Heart and Vascular Provider 07/09/24 Morning, Gaye Varela NP [address] [facility] [place] [address] Assigned PCP 08/09/24 Macarena Hudson PA-C [address] [place] [address] Assigned Neuroscience Provider 10/07/24 documented as of this encounter
--- OUTSIDE RECORDS SUMMARY | 2024-10-25 12:52 | XMS_ITS | Encounter Summary ---
Author Organization [place] Address [address] [place] [address] Care Team Providers Care Roving Hauler Name Role Phone Jeison Stout MD Unavailable [phone] Morning, Gaye Varela NP Primary Care Provider [phone] Morning, Gaye Varela NP Unavailable [phone] Macarena Hudson PA-C Unavailable [phone] Encounter Details Date Type Department Care Team (Latest Contact Info) Description 10/20/2024 Travel Social History Tobacco Use Types Packs/Day [...] re latives? 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 Diagnostic Imaging [address] [place] [phone] Macarena Hudson PA-C [address]47 [place] [address] 10/30/2024 1:30 PM CDT Office Visit [facility] Spine and Neurosurgery [address] [facility] [address] [place] [phone] Macarena Hduson PA-C [address] [place], [place] [phone] Kassie Berkowitz PA-C [facility] [address] [address] 11/25/2024 9:10 AM CDT Office Visit [facility] 1600 [facility] 200 [place] [phone] Katt Gaytan PA-C 1600 [facility] 200 [place], [place] [address] 01/20/2025 1:00 PM CDT Office Visit [facility] Sleep Center [place] [address] [place] [phone] Morning, Gaye Varela, ROTARY MACHINE OPERATOR [address] [facility] [address] [id number] Kassie Rondon PA-C [address] [facility] [address] [address] 01/22/2025 Ancillary Procedure [facility] [address] [facility] [address] [place] [phone] Julio Wright MD [address] [facility] [address] [place] [address] documented as of this encounter Visit Diagnoses Not on filedocumented in this encounter Care Teams Roving Hauler Relationship Specialty Start Date End Date Morning, Gaye Varela NP [address] [facility] [address] PCP - General Internal Medicine 07/29/24 Jeison Stout MD [address] [facility] [address] [place] [address] Assigned Heart and Vascular Provider 07/09/24 Morning, Gaye Varela NP [address] [facility] [address] [address] Assigned PCP 08/09/24 Macarena Hudson PA-C [address] [place] [address] Assigned Neuroscience Provider 10/07/24 documented as of this encounter
--- OUTSIDE RECORDS SUMMARY | 2024-10-25 12:52 | XMS_ITS | Encounter Summary ---
Author Organization [place] Address [address] [place] [address]. [place] [address] Care Team Providers Care Pump Mechanic Name Role Phone Jeison Stout MD Unavailable [phone] Morning, Gaye Varela NP Primary Care Provider [phone] Tayla Collado PA-C Unavailable [phone] Morning, Gaye Varela NP Unavailable [phone] Macarena Hudson PA-C Unavailable [phone] Reason for Visit * Reason Onset Date Comments Referral 08/25/2024 Encounter Details Date Type Department Care Team (Late st Contact Info) Description 08/25/2024 Telephone [facility] 1824 [place] [address] Morning, Gaye Varela NP [address] [facility] [address] [id number] Referral Social History Tobacco Use Types Packs/Day Years [...] re latives? 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 Pt does not have any symptoms including significant changes in bowel habits or consistency of stool, blood in the stool. Patient main concern regarding previous colonoscopy result is, there are a few polyps which can turn into cancerous. He wants to make sure he is okay. He is aware of the age time frame. I am not seeing any past results/recommendations. If anything changes, we will notify him. No further questions at this time. Ilya Arnold RN * Telephone Encounter - Gaye Alexander NP - 08/25/2024 2:53 PM CDT Screening for colorectal cancer close from age 45 to age 75 unless there is significant risk factors or if he is having significant symptoms. If he is having symptoms something that we will need to be evaluated prior to ordering a colonoscopy. Symptoms would include significant changes in bowel habits or consistency of stool, blood in the stool. Otherwise if he does not have any specific concernshe is outside the timeframe for screening so it will likely not be covered by insurance. Gaye Alexander CNP * Telephone Encounter - Jhonatan-Sylwia Henderson - 08/25/2024 1:13 PM CDT Order/Referral Request Who is requesting: Patient Orders being requested: Order for a colonoscopy Reason service is needed/diagnosis: Routine When are orders needed by: TRICIA Has this been discussed with Provider: No Does patient have a preference on a Group/Provider/Facility? [facility] Does patient have an appointment scheduled?: No Where to send orders: Place orders within [facility] or would you prefer to receive a phone call?: Patient would prefer a phone call Okay to leave a detailed message?: Yes at Home number on file [phone] (home) documented in this encounter Plan of Treatment Upcoming Encounters Date Type Department Care Team (Late st Contact Info) Description 10/30/2024 1:00 PM CDT Appointment [facility] Diagnostic Imaging [address]75 [place] [phone] Macarena Hudson PA-C 1747 [place] [address] 10/30/2024 1:30 PM CDT Office Visit [facility] Spine and Neurosurgery [address] [facility] [address] [place] [address] Macarena Hudson PA-C [address]47 [place], [place] [phone] Kassie Berkowitz PA-C [facility] 65[address] [place] [address] 11/25/2024 9:10 AM CDT Office Visit [facility] [place] [address] [facility] [address] [place] [phone] Katt Gaytan PA-C [address] [facility] [address] [place] [address] 01/20/2025 1:00 PM CDT Office Visit [facility] [place] [address] [place] [phone] Morning, Gaye Varlea PRINTING AND STAMPING SUPERVISOR [address] [address] Kassie Rondon PA-C [address] [facility] [address] [place] [address] 01/22/2025 Ancillary Procedure [facility] Heart [facility] [address] [facility] [address] [place] [phone] Julio Wright MD [address] [facility] [address] [place] [address] documented as of this encounter Visit Diagnoses Not on filedocumented in this encounter Additional Health Concerns Infection Onset Date Last Indicated Resolved Time Rule Out COVID-19 09/17/2024 09/17/2024 09/17/2024 11:52 AM CDT documented as of this encounter Care Teams Pump Mechanic Relationship Specialty Start Date End Date Morning, Gaye Varela NP [address] [facility] [place] [address] PCP - General Internal Medicine 07/29/24 Jeison Stout MD 1600 [facility] 200 [place] [address] Assigned Heart and Vascular Provider 07/09/24 Tayla Collado PA-C [address] [facility] [place] [address] Assigned Neuroscience Provider 08/09/24 10/06/24 Morning, Gaye Varela NP [address] [address] [address] Assigned PCP 08/09/24 Macarena Hudson PA-C [address] [place] [address] Assigned Neuroscience Provider 10/07/24 documented as of this encounter
--- OUTSIDE RECORDS SUMMARY | 2024-10-25 12:52 | XMS_ITS | Encounter Summary ---
Author Organization [place] Address [address] [place] [address] Care Team Providers Care Freight Manager Name Role Phone Jeison Stout MD Unavailable [phone] Morning, Gaye Varela NP Primary Care Provider [phone] Tayla Collado PA-C Unavailable [phone] Morning, Gaye Varela NP Unavailable [phone] Encounter Details Date Type Department Care Team (Latest Contact Info) Description 09/25/2024 Travel Social History Tobacco Use Types Packs/Day [...] Answer Date Recorded PHQ-2 Score 2 07/29/2024 [facility] of Occupat ional Health - Occupational Stress [...] in an abandoned building, in an overnight senior living, or couch-surfing.) Yes 07/28/2024 Are you worried [...] on file 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 Gender Identity Not on file Sexual Orientation Not on file documented as of this encounter Plan of Treatment Upcoming Encounters Date Type Department Care Team (Late st Contact Info) Description 10/30/2024 1:00 PM CDT Appointment [facility] Diagnostic Imaging 1575 [place] [phone] Macarena Hudson PA-C [address] [place], [place] [phone] 10/30/2024 1:30 PM CDT Office Visit [facility] Spine and Neurosurgery [address] [facility] [address] [place] [phone] Macarena Hudson PA-C [address] [place], [place] [phone] Kassie Berkowitz PA-C [facility] [address] [id number] 11/25/2024 9:10 AM CDT Office Visit [facility] 1600 [facility] [address] [place] [phone] Katt Gaytan PA-C 1600 [facility] 200 [place] [address] 01/20/2025 1:00 PM CDT Office Visit [facility] [place] [address] [place] [phone] Morning, Gaye Varela, HOSPITAL TRAY SERVICE WORKER [address] [facility] [address] [place] [phone] Kassie Rondon PA-C [address] [facility] [address] [address] 01/22/2025 Ancillary Procedure [facility] 1600 [facility] [address] [place] [phone] Julio Wright MD 1600 [facility] [address] [place] [address] documented as of this encounter Visit Diagnoses Not on filedocumented in this encounter Care Teams Freight Manager Relationship Specialty Start Date End Date Morning, Gaye Varela NP [address] [address] PCP - General Internal Medicine 07/29/24 Jeison Stout MD [address] [facility] [address] [place] [address] Assigned Heart and Vascular Provider 07/09/24 Tayla Collado PA-C 6545 [place] [address] Assigned Neuroscience Provider 08/09/24 10/06/24 Morning, Gaye Varela NP [address] [address] Assigned PCP 08/09/24 documented as of this encounter
--- OUTSIDE RECORDS SUMMARY | 2024-10-25 12:52 | XMS_ITS | Encounter Summary ---
Author Organization [facility] Address [address] [place] [address] Care Team Providers Care Emts Name Role Phone Jeison Stout MD Unavailable [phone] Morning, Gaye Varela NP Primary Care Provider [phone] Tayla Collado PA-C Unavailable [phone] Morning, Gaye Varela NP Unavailable [phone] Encounter Details Date Type Department Care Team (Latest Contact Info) Description 09/28/2024 Travel Social History Tobacco Use Types Packs/Day [...] re latives? 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 Gender Identity Not on file Sexual Orientation Not on file documented as of this encounter Plan of Treatment Upcoming Encounters Date Type Department Care Team (Late st Contact Info) Description 10/30/2024 1:00 PM CDT Appointment [facility] Diagnostic Imaging [address] [place] [phone] Macarena Hudson PA-C [address] [place], [place] [phone] 10/30/2024 1:30 PM CDT Office Visit [facility] Spine and Neurosurgery [address] [facility] [address] [place] [phone] Macarena Hudson PA-C [address] [place], [place] [phone] Kassie Berkowitz PA-C [facility] [address] [id number] 11/25/2024 9:10 AM CDT Office Visit [facility] [address] [facility] [address] [place] [phone] Katt Gaytan PA-C [address] [facility] [address] [place] [address] 01/20/2025 1:00 PM CDT Office Visit [facility] [place] [address] [place] [phone] Morning, Gaye Varela, AIR MARSHAL [address] [facility] [address] [place] [phone] Kassie Rondon PA-C [address] [facility] [address] [address] 01/22/2025 Ancillary Procedure [facility] [address] [facility] [address] [place] [phone] Julio Wright MD [address] [facility] [place] [address] [place] [address] documented as of this encounter Visit Diagnoses Not on filedocumented in this encounter Care Teams Emts Relationship Specialty Start Date End Date Morning, Gaye Varela NP [address] [address] PCP - General Internal Medicine 07/29/24 Jeison Stout MD [address] [facility] [address] [address] [place] [address] Assigned Heart and Vascular Provider 07/09/24 Tayla Collado PA-C [address] [place] [address] Assigned Neuroscience Provider 08/09/24 10/06/24 Morning, Gaye Varela NP [address] [address] Assigned PCP 08/09/24 documented as of this encounter
--- OUTSIDE RECORDS SUMMARY | 2024-10-25 12:52 | XMS_ITS | Clinical Summary ---
Author Organization [facility] Address [address] [place] [address] Care Team Providers Care Investment Consultant Name Role Phone Pcp, No Primary Care Provider Unavailabl e Allergies Active Allergy Reactions Criticality Noted Date Comments Lisinopril Cough Medium 06/15/2024 Medications aspirin (ECOTRIN) 81 mg enteric coated tablet Take 81 mg by mouth once daily. Active atenoloL (TENORMIN) 25 mg tablet Take 1 Tablet by mouth once daily. 12/15/2023 Active atorvastatin (LIPITOR) 40 mg tablet Take 40 mg by mouth once daily. Active buPROPion (WELLBUTRIN XL) 300 mg Extended-Releas e tablet Take 300 mg by mouth once daily. 06/28/2023 Active losartan (COZAAR) 100 mg tablet Take 1 Tablet by mouth once daily. 03/31/2024 Active metFORMIN (GLUCOPHAGE XR) 500 mg Extended-Releas e tablet Take 2 Tablets by mouth once daily. 03/31/2024 Active Active Problems No known active problems Social History Tobacco Use Types Packs/Day Years Used Date Smoking Tobacco: Never Smokeless Tobacco: Never Tobacco Cessation:Counseling Given: Not Answered Alcohol Use Standard Drinks/Week Comments Yes 5 (1 standard drink = 0.6 oz pur e alcohol) Sex and Gender Information Value Date Recorded Sex Assigned at Not on file Legal Sex Male 8:45 AM MANAGER MANAGEMENT Gender Identity Not on file Sexual Orientation Not on file Obstetrics History Last Filed Vital Signs Vital Sign Reading Time Taken Comments Blood Pressure 157/70 06/15/2024 11:53 AM MANAGER MANAGEMENT Pulse 63 06/15/2024 11:53 AM MANAGER MANAGEMENT Temperature 36.1 C (97 F) 06/15/2024 11:53 AM MANAGER MANAGEMENT Respiratory Rate 20 06/15/2024 11:53 AM MANAGER MANAGEMENT Oxygen Saturation 96% 06/15/2024 11:53 AM MANAGER MANAGEMENT Inhaled Oxygen Concentration - - Weight - - Height - - Body Mass Index - - Plan of Treatment Health Maintenance Due Date Last Done Comments Tdap 1953 Depression screening for age 12+ 1954 BMI (ht and wt on same day) for age 18+ 1960 Tetanus booster 1962 Pneumococcal series for age 50+ (1 of 1 - PCV) 1992 Zoster (shingles) series for age 50+ (1 of 2) 1992 Medicare Wellness for age 65+ 08/28/2007 RSV vaccine for adults or (1 - 1-dose 75+ series) 2017 COVID-19 vaccine series ( season) 2024 05/02/2023, 04/23/2022, 03/25/2021, Additional history exists Influenza Vaccine (Season Ended) 2025 Insurance [employer] [address] [id number] Care Teams Investment Consultant Relationship Specialty Start Date End Date Pcp, No . PCP - General 06/15/24
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
--- OUTSIDE RECORDS SUMMARY | 2024-10-25 12:52 | XMS_ITS | Encounter Summary ---
Author Organization [facility] Address [address] [place] [address] Care Team Providers Care Pen Or Pencil Assembly Machine Operator Name Role Phone Jeison Stout MD Unavailable [phone] Morning, Gaye Varela NP Primary Care Provider [phone] Tayla Collado PA-C Unavailable [phone] Morning, Gaye Varela NP Unavailable [phone] Encounter Details Date Type Department Care Team (Late st Contact Info) Description 10/05/2024 8:[address] [facility] [address] [place] [address] Hyponatremia Social History Tobacco Use [...] re latives? Once a week 07/28/2024 Attends Islam Services Not on file 07/28 Active Member of Clubs or Organizations Not on f ile 07/28/2024 Attends Club or Organization Meetings Not on wilman e 07/28/2024 Marital Status Not on file 07/28/2024 PHQ-2 Answer Date Recorded PHQ-2 Score 2 07/29/2024 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 Gender Identity Not on file Sexual Orientation Not on file documented as of this encounter Plan of Treatment Upcoming Encounters Date Type Department Care Team (Late st Contact Info) Description 10/30/2024 1:00 PM CDT Appointment [facility] [address] [place] [phone] Macarena Hudson PA-C [address] [place] [address] 10/30/2024 1:30 PM CDT Office Visit [facility] Spine and Neurosurgery [address] [facility] [address] [place] [phone] Macarena Hudson PA-C [address] [place] [address] Kassie Berkowitz PA-C [facility] [address] [address] 11/25/2024 9:10 AM CDT Office Visit [facility] [place] [address] [facility] [address] [place] [address] Katt Gaytan PA-C [address] [facility] [address] [place] [address] 01/20/2025 1:00 PM CDT Office Visit [facility] [place] [address] [place] [phone] Morning, Gaye Varela, LAMP MECHANIC [address] [facility] [address] [place] [id number] Kassie Rondon PA-C [address] [address] 01/22/2025 Ancillary Procedure [facility] [address] [facility] [address] [place] [address] Julio Wright MD [address] [facility] [address] [place] [address] documented as of this encounter Procedures Procedure Name Priority Date/Time Associated Diagnosis Comments BASIC METABOLIC PANEL Routine 10/05/2024 8:48 AM CDT Hyponatremia documented in this encounter [...] 12:23 PM CDT [facility] Comment:eGFR calculated usin 2020 CKD-EPI equation. Calcium 9.5 8.8 - 10.4 mg/dL 10/05/2024 12:23 PM CDT [facility] Glucose 112(H) 70 - 99 mg/dL 10/05/2024 12:23 PM CDT [facility] Blood BLOOD SPECIMEN / Unknown Venipuncture / Unknown 10/05/2024 8:48 AM CDT 10/05/2024 8:48 AM CDT us Gaye Varela Morning LAMP MECHANIC LAB - BLOOD ORDERABLES Nisha kamara Result [facility] [address] [facility] [address], Room [address] [place] [address], [facility] documented in this encounter Visit Diagnoses Diagnosis Hyponatremia Hyposmolality and/or hyponatremia documented in this encounter Care Teams Pen Or Pencil Assembly Machine Operator Relationship Specialty Start Date End Date Morning, Gaye Varela NP [address] [address] PCP - General Internal Medicine 07/29/24 Jeison Stout MD [address] [place] [address] [address] [place] [address] Assigned Heart and Vascular Provider 07/09/24 Tayla Collado, PAGabriellaC [address] [place] [address] Assigned Neuroscience Provider 08/09/24 10/06/24 Morning, Gaye Varela NP [address] [address] Assigned PCP 08/09/24 documented as of this encounter
--- OUTSIDE RECORDS SUMMARY | 2024-10-25 12:52 | XMS_ITS | Encounter Summary ---
Author Organization [facility] Address [address] [place] [address] Care Team Providers Care Water/Wastewater Engineer Name Role Phone Jeison Stout MD Unavailable [phone] Morning, Gaye Varela NP Primary Care Provider [phone] Morning, Gaye Varela NP Unavailable [phone] Macarena Hudson PA-C Unavailable [phone] Encounter Details Date Type Department Care Team (Late st Contact Info) Description 10/22/2024 Telephone [facility] [address] [place] [address] Frank Mukherjee MD [address] [facility] [address] [address] Social History Tobacco Use Types Packs/Day Years [...] re latives? 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 Mukherjee regarding his results. * Telephone Encounter - Gail Gutierrez - 10/22/2024 11:03 AM CDT Patient is calling today to have someone call him back about his PSA test results from 10/21/24. Please call him back at [phone] to discuss and it is ok to leave a detailed vm. Thank you documented in this encounter Plan of Treatment Upcoming Encounters Date Type Department Care Team (Late st Contact Info) Description 10/30/2024 1:00 PM CDT Appointment [facility] Diagnostic Imaging [address] [place] [phone] Macarena Hudson PA-C [address] [place], [place] [phone] 10/30/2024 1:30 PM CDT Office Visit [facility] Spine [facility] Neurosurgery [address] [facility] [address] [place] [phone] Macarena Hudson PA-C [address] [place], [place] [phone] Kassie Berkowitz PA-C [facility] [address] [facility] [place] [id number] 11/25/2024 9:10 AM CDT Office Visit [facility] [address] [facility] [address] [place] [phone] Katt Gaytan PA-C [address] [facility] [address] [place], [place] [phone] 01/20/2025 1:00 PM CDT Office Visit [facility] [place] [address] [place] [phone] Morning, Gaye Varela NP [address] [address] Kassie Rondon PA-C [address] [facility] [address] [place], [place] [address] 01/22/2025 Ancillary Procedure [facility] [address] [facility] [address] [place] [phone] Julio Wright MD [address] [facility] 200 [place], [place] [phone] documented as of this encounter Visit Diagnoses Not on filedocumented in this encounter Care Teams Water/Wastewater Engineer Relationship Specialty Start Date End Date Morning, Gaye Varela NP [address] [address] PCP - General Internal Medicine 07/29/24 Jeison Stout MD [address] [facility] 200 [place] [address] Assigned Heart and Vascular Provider 07/09/24 Morning, Gaye Varela NP [address] [address] Assigned PCP 08/09/24 Macarena Hudson PA-C [address] [place] [address] Assigned Neuroscience Provider 10/07/24 documented as of this encounter
--- OUTSIDE RECORDS SUMMARY | 2024-10-25 12:52 | XMS_ITS | Encounter Summary ---
Author Organization [facility] Address [address] [place] [address] Care Team Providers Care Oracle Erp Developer Name Role Phone Jeison Stout MD Unavailable [phone] Morning, Gaye Varela NP Primary Care Provider [phone] Morning, Gaye Varela NP Unavailable [phone] Macarena Hudson PA-C Unavailable [phone] Reason for Visit * CV Testing (Routine) - Pending Review Specialty Diagnoses / Procedures Referred By Saba guzman Referred To Contact Diagnoses History of loop recorder Syncope, unspecified syncope type Procedures Cardiac Device Check - Remote Julio Wright MD [address] [facility] [address] [place] [address] Phone: tel: fax: Referral ID Status Reason Start Date Expiration Date V isits Requested Visits Authorized [id number] Pending Review 09/25/2024 09/25/2025 100 100 Encounter Details Date Type Department Care Team (Late st Contact Info) Description 10/23/[address] [facility] [address] [facility] [address] [place] [address] Julio Wright MD [address] [facility] [address] [place] [address] Social History Tobacco Use Types Packs/Day Years [...] re latives? 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 Sp[facility] Neurosurgery [address] [facility] [address] [place] [address] Macarena Hudson PA-C [address] [place] [address] Kassie Berkowitz PA-C [facility] [address] [facility] [address] [place] [address] 11/25/2024 9:10 AM CDT Office Visit [facility] [address] [facility] [address] [place] [phone] Katt Gaytan PA-C [address] [facility] [address] [place] [address] 01/20/2025 1:00 PM CDT Office Visit [facility] [address] [place] [phone] Morning, Gaye Varela, APPLICATION ENGINEER [address] [facility] [address] [place] [phone] Kassie Rondon PA-C [address] [place] [address] 01/22/[address] [facility] [address] [facility] [address] [place] [phone] Julio Wright MD [address] [facility] [address] [place] [address] documented as of this encounter Procedures Procedure Name Priority Date/Time Associated Diagnosis Comments REMOTE IMPLANTABLE LOOP RECORDER INTERROGATION 30 DAY Routine 10/23/2024 10:30 AM CDT History of loop recorder Syncope, unspecified syncope type documented in this encounter Results * REMOTE IMPLANTABLE LOOP RECORDER INTERROGATION 30 DAY (10/23/2024 10:30 AM CDT) Date Time Interrogation Session [id number] [employer] Implantable Pulse Generator Phys Assistant Medtronic [employer] Implantable Pulse Generator Model [id number] LINQ II [employer] Implantable Pulse Generator Serial Number [id number] [employer] Type Interrogation Session Remote [employer] Clinic Name [facility] [employer] Implantable Pulse Generator Type Implantable Diagnostic Monitor [employer] Implantable Pulse Generator Implant Date [id number] [employer] Anatomical Region Laterality Modality Other 10/23/2024 9:18 AM CDT Narrative 10/23/2024 10:43 AM CDT Type: routine remote loop recorder transmission. Device: Medtronic LINQ II. Presenting rhythm: Sinus 60 bpm. Battery status: Good. Arrhythmias: since 09/25/24; None detected. Plan: Next remote check scheduled for 01/22/25. Anastasiya Davilaec, Device Specialist Device follow up for the [...] Result documented in this encounter Visit Diagnoses Not on filedocumented in this encounter Care Teams Oracle Erp Developer Relationship Specialty Start Date End Date Morning, Gaye Varela NP [address] [facility] [place] [address] PCP - General Internal Medicine 07/29/24 Jeison Stout MD [address] [place] [address] [address] [place] [address] Assigned Heart and Vascular Provider 07/09/24 Morning, Gaye Varela NP [address] [place] [address] Assigned PCP 08/09/24 Macarnea Hudson PA-C [address] [place] [address] Assigned Neuroscience Provider 10/07/24 documented as of this encounter
--- OUTSIDE RECORDS SUMMARY | 2024-10-25 12:52 | XMS_ITS | Encounter Summary ---
Author Organization [facility] Address [address] [place] [address] Care Team Providers Care Prototype Sewer Name Role Phone Jeison Stout MD Unavailable [phone] Morning, Gaye Varela NP Primary Care Provider [phone] Morning, Gaye Varela NP Unavailable [phone] Macarena Hudson PA-C Unavailable [phone] Encounter Details Date Type Department Care Team (Latest Contact Info) Description 10/21/2024 Travel Social History Tobacco Use Types Packs/Day [...] re latives? 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 Gender Identity Not on file Sexual Orientation Not on file documented as of this encounter Plan of Treatment Upcoming Encounters Date Type Department Care Team (Late st Contact Info) Description 10/30/2024 1:00 PM CDT Appointment [facility] Diagnostic Imaging [address] [place] [phone] Macarena Hudson PA-C [address] [place] [address] 10/30/2024 1:30 PM CDT Office Visit [facility] Spine and Neurosurgery [address] [facility] [address] [place] [phone] Macarena Hudson PA-C [address] [place], [place] [phone] Kassie Berkowitz PA-C [facility] [address] [address] 11/25/2024 9:10 AM CDT Office Visit [facility] 1600 [facility] 200 [place] [phone] Katt Gaytan PA-C 1600 [facility] 200 [place], [place] [phone] 01/20/2025 1:00 PM CDT Office Visit [facility] [place] [address] [place] [phone] Morning, Gaye Varela, WELDING MACHINE OPERATOR FRICTION [address] [facility] [address] [phone] Kassie Rondon PA-C [address] [facility] [address] [address] 01/22/2025 Ancillary Procedure [facility] 1600 [facility] [address] [place] [phone] Julio Wright MD [address] [facility] [address] [place] [address] documented as of this encounter Visit Diagnoses Not on filedocumented in this encounter Care Teams Prototype Sewer Relationship Specialty Start Date End Date Morning, Gaye Varela NP [address] [facility] [place] [address] PCP - General Internal Medicine 07/29/24 Jeison Stout MD [address] [facility] [address] [place] [address] Assigned Heart and Vascular Provider 07/09/24 Morning, Gaye Varela NP [address] [facility] [address] [address] Assigned PCP 08/09/24 Macarena Hudson PA-C [address] [place] [address] Assigned Neuroscience Provider 10/07/24 documented as of this encounter
[2024-10-25 13:18] LABS: Basophils Absolute Auto 0.04 K/uL (0.00-0.30); Basophils Percent Auto 0.5 % (0.0-3.0); Eosinophils Absolute Auto 0.18 K/uL (0.00-0.50); Eosinophils Percent Auto 2.5 % (0.0-7.0); Hematocrit 38.2 % (37.0-53.0); Hemoglobin* 12.1 gm/dL (13.5-17.5); Immature Granulocytes Abs Auto 0.02 K/uL (0.00-0.30); Immature Granulocytes Pct Auto 0.3 %; Lymphocytes Percent Auto 13.9 % (20-44); Mean Corpuscular HGB Conc 32 gm/dL (32-36); Mean Corpuscular Hemoglobin 30 pg (26-34); Mean Corpuscular Volume 95 fL (80-100); Monocytes Percent Auto 7.4 % (0.0-11.0); Neutrophils Percent Auto 75.4 % (42.0-72.0); Platelet Count* 199 K/uL (140-440); RDW Coefficient of Variation % 14.5 % (11.5-15.5); Red Blood Count 4.01 m/uL (4.30-5.90); White Blood Count* 7.32 K/uL (4.50-11.00)
[2024-10-25 13:26] LABS: Slide Review Reflex No
[2024-10-25 13:31] LABS: Albumin* 3.9 g/dL (3.3-5.0); Chloride* 104 mmol/L (96-114); Potassium* 4.6 mmol/L (3.6-5.1); Sodium* 137 mmol/L (135-149)
[2024-10-25 13:34] LABS: Alanine Aminotransferase* 23 U/L (4-50); Alkaline Phosphatase* 61 U/L (40-150); Anion Gap 7 mEq/L (7-15); Aspartate Amino Transferase* 40 U/L (12-35); Bilirubin Total* 0.5 mg/dL (0.1-1.5); Blood Urea Nitrogen* 20 mg/dL (7-30); Carbon Dioxide* 26 mmol/L (20-32); Creatinine* 0.8 mg/dL (0.5-1.5); Est. Creatinine Clearance* 60.66; Estimated Glomerular Filt Rate 88 ml/min; Glucose* 116 mg/dL (60-115); Total Protein* 6.7 g/dL (6.0-8.3)
== END 2024-10-25 15:44 | disposition home or self-care (01) ==
PROVIDERS: Emergency Provider Family Medicine
DX: R55 Syncope and collapse (principal)
CPT/HCPCS: 36415; 80053; 84484; 85025; 93005; 99284